=== PATIENT | male | born 1955 | race Caucasian/White ===

== ENCOUNTER 2019-08-10 15:33 | Outpatient (CLI) | payer BC, SELFPAY ==
--- NOTE | 2019-08-10 | XR_ITS ---
WS: [id number] CHEST 2 VIEWS HISTORY: DYSPNEA COMPARISON: 06/25/2017 Lungs: Clear with no abnormality. No pleural effusion or pneumothorax. Cardiac size: Normal. Mediastinum/Aorta: Normal mediastinum. Bones: Normal. XR/XR chest 2V* [id number] IMPRESSION: Normal chest.
== END 2019-08-10 15:34 | disposition home or self-care (01) ==
PROVIDERS: Family Provider Family Medicine; PCP Family Medicine; Visit Provider Family Medicine
DX: Z01.89 Encounter for other specified special examinations (principal)

== ENCOUNTER 2020-04-29 13:18 | Inpatient (IN) | payer BC, MEDICARE, SELFPAY ==
[2020-04-29] VITALS (7 sets, daily range): BP systolic 113–133; BP diastolic 60–80; PULSE 90–106; RESP 18–22; TEMP 36.7–38.1; O2SAT 85–96; BMI 25.4
--- NOTE | 2020-04-29 14:37 | XR_ITS ---
WS: [id number] PORTABLE CHEST HISTORY: dyspnea COMPARISON: 08/10/2019 Scattered bilateral interstitial thickening in the upper and lower lung bal. New since 08/10/2019. N o pleural effusion or pneumothorax. Cardiac size: Normal. Mediastinum/Aorta: Normal mediastinum. No osseous abnormality seen. XR/XR chest 1V portable [id number] IMPRESSION: Multilobar bilateral interstitial thickening. Suspect pneumonitis/viral pneumon ia.
--- NOTE | 2020-04-29 14:38 | CTR_ITS ---
PROCEDURE INFORMATION: Exam: CT Angiography Chest With Contrast Exam date and time: 04/29/2020 5:35 PM Age: 64 years old Clinical indication: Cough and fever; Patient HX: Covid+ fever cough low o2 sats; Additional info: Dyspnea and covid TECHNIQUE: Imaging protocol: Computed tomographic angiography of the chest with intravenous contrast. Sagittal and coronal reformatted images were created and reviewed. 3D rendering (Not supervised by radiologist): MIP and/or 3D reconstructed images were created by the technologist. Radiation optimization: All CT scans at this facility use at least one of these dose optimization techniques: automated exposure control; mA and/or kV adjustment per patient size (includes targeted exams where dose is matched to clinical indication); or iterative reconstruction. Contrast material: OMNI 350; Contrast volume: 61 ml; Contrast route: INTRAVENOUS (IV); COMPARISON: CR XR chest 1V portable [id number] 04/29/2020 2:48 PM RADIATION DOSE METRICS: Total DLP (mGy-cm): 563.18 FINDINGS: Pulmonary arteries: No filling defects in the pulmonary arteries to suggest pulmonary embolism. Aorta: No evidence for aortic aneurysm or aortic dissection. Lungs: Tracheobronchial structures are patent. Multiple areas of ground-glass opacification diffusely in both lungs, with areas of crazy paving . More focal alveolar airspace disease in the posterior right lower lobe, the left lower lobe, and the left upper lobe. Multiple noncalcified nodules in the right lung, the largest is in the right middle lobe and has an average measurement of 6 mm (series 3, image 34). Pleural space: Trace left pleural effusion. No pneumothorax. Heart: The heart is unremarkable. No cardiomegaly. No pericardial effusion. Mediastinal space: The esophagus is unremarkable. No mediastinal hematoma. No pneumomediastinum. Lymph nodes: No lymphadenopathy. Liver: The visualized liver is unremarkable. Gallbladder and bile ducts: The visualized gallbladder is unremarkable. No dilatation of the visualized bile ducts. Pancreas: The visualized pancreas is unremarkable. No pancreatic ductal dilatation. Spleen: The spleen is unremarkable. Adrenals: The right and left adrenal glands are unremarkable. Kidneys and ureters: The visualized right and left kidneys are unremarkable. Bones/joints: Multilevel degenerative changes of varying severity in the visualized spine. Soft tissues: No acute abnormality in the extrathoracic soft tissues. CT/CT angio chest PE protcl [id number] IMPRESSION: 1. Commonly reported imaging features of COVID-19 pneumonia are present. Other processes such as influenza pneumonia and organizing pneumonia, as can be seen with drug toxicity and connective tissue disease, can cause a similar imaging pattern. (Reference: Hardy) Recommend followup chest imaging in 4-6 weeks to insure resolution of these findings. 2. No evidence for pulmonary embolism. 3. Trace left pleural effusion. 4. Multiple noncalcified nodules in the right lung, the largest is in the right middle lobe and has an average measurement of 6 mm. For patients at low risk (minimal or absent history of smoking and of other known risk factors), recommend CT Chest at 3-6 months, then consider CT Chest at 18-24 months. For patients at high risk (history of smoking or of other known risk factors), recommend CT Chest at 3-6 months, then CT Chest at 18-24 months. (Reference: Shana) 5. Incidental/nonacute findings are listed in the report. REFERENCES: 1. Shana H, et al. Guidelines for Management of Incidental Pulmonary Nodules Detected on CT Images: From the Fleischner Society 2017. Radiology. 2017;284(1):228-243. 2. Hardy Vega, et al., Radiological Society of [place] Expert Consensus Statement on Reporting Chest CT Findings Related to COVID-19. Endorsed by the Society of Thoracic Radiology, the [place] [employer], and RSNA. Published September 02, 2019. Radiation Dose CTDIVOL = (mGy): DLP = 563.18 (mGy-cm)
--- NOTE | 2020-04-29 15:21 | ED_ITS ---
HPI - COVID General: Chief Complaint: COVID symptoms Stated Complaint: COVID+ (TESTED 1 WK AGO), WORSENING SYMPTOMS Time Seen by Provider: 04/29/20 15:15 Triage information: No fever, cough or shortness of breath . Exposure to COVID + person last 14 days History of Present Illness: HPI Narrative: 64 yo female presents emergency room with complaints of increasing shortness of breath over the last several days room air O2 sat is 85% on arrival in triage. Patient is known Covid positive you tested +1-week ago. He denies any diarrhea at this point did have some initially. He has had increasing cough and shortness of breath without any productive cough. He has had significant myalgias as well. He reports improvement with application of oxygen and maintaining sats in the low 90s on 4 L by nasal cannula. complaint: known COVID positive Prior testing date: 04/22/20 COVID 19 common symptoms: positive fever(s), chills, cough, non-productive cough, dyspnea, fatigue, body aches and nasal congestion; negative nausea, vomiting or diarrhea COVID 19 other sytmptoms: positive chest pain and requiring oxygen Onset (ago): day(s) (7) Severity: severe Pertinent comorbid conditions: hypertension Treatment prior to arrival: none COVID Results: No Data to Display Review of Systems Const: Reports: fever(s), chills, body aches and fatigue ENMT: Reports: nasal congestion Card: Reports: chest pain Resp: Reports: dyspnea and non-productive cough GI: Denies: abdominal pain, nausea, vomiting, hematemesis, coffee ground emesis, diarrhea, constipation, bloating, hematochezia or melena : Denies: flank pain, dysuria, urinary frequency or urinary urgency Skin/Breast: Denies: rash or pruritus PFS ED PFSH: Medical History (Updated 04/29/20 @ 17:37 by Trung Juárez DO) Gastric ulcer History of nephrolithiasis Surgical History History of colonoscopy Status post laparotomy For perforated duodenal ulcer Family History (Updated 04/29/20 @ 17:05 by Bala Jacob MD) Mother Cancer Melanoma Denies family history of Anesthesia complication Bleeding disorder Social History (Updated 04/29/20 @ 17:06 by Bala Jacob MD) Smoking and tobacco status: former smoker Alcohol intake: never Substance/Drug Use: never Physical Exam Const: COMMON NORMALS: no acute distress GENERAL APPEARANCE: cooperative and comfortable ORIENTATION/CONSCIOUSNESS: Yes awake, Yes oriented to person, Yes oriented to place and Yes oriented to time HENMT: COMMON NORMALS: normocephalic, atraumatic and hearing grossly normal bi laterally HEAD & SCALP: normocephalic and atraumatic Eye: COMMON NORMALS: Equal, round and reactive pupils present, EOMs intact bilaterally, conjunctivae normal and no scleral icterus CONJUNCTIVA: Yes conjunctivae normal PUPIL: Yes Equal, round and reactive pupils present Neck/C-Spine: COMMON NORMALS: no JVD Resp: AUSCULTATION: rales and wheezes Cardio: COMMON NORMALS: no JVD, regular rate, regular rhythm and No murmurs present (Cardio) RATE: regular rate RHYTHM: regular rhythm GI: COMMON NORMALS: Soft to palpation and No hepatosplenomegaly present AUSCULTATION: Yes normoactive bowel sounds PALPATION: Yes Soft to palpation, No Tenderness to palpation present (GI), No Guarding due to palpation present (GI) and Yes No hepatosplenomegaly present Extremity: COMMON NORMALS: normal to inspection, capillary refill normal, no clubbing, cyanosis or edema, no calf tenderness and no pedal edema Neuro: SENSORIUM/ORIENTATION: Yes oriented to person, Yes oriented to place and Yes oriented to time Skin: COMMON NORMALS: no rashes or lesions noted GENERAL SKIN EXAM: no rashes or lesions noted Course Vital Signs: Vital signs: Vital Signs Temperature 98.0 F 04/29/20 14:06 Pulse Rate 92 04/29/20 14:06 Respiratory Rate 22 H 04/29/20 14:06 Blood Pressure 133/60 04/29/20 14:06 Pulse Oximetry 92 04/29/20 14:15 MDM - COVID MDM Narrative: Medical decision making narrative: Patient with pneumonia secondary to Covid. We will go ahead and admit to the ICU. CTA of the chest is pending. Patient been given remdesivir and dexamethasone Dr. Jacob is seen the patient will admit to the VICU Lab Data: Labs: Lab Results 04/29/20 04/29/20 04/29/20 Range/Units 15:30 15:30 15:30 WBC 14.5 H (4.0-10.0) 10^3/ uL RBC 4.82 (4.1-5.3) 10^6/u L Hgb 14.9 (11.7-16.6) g/dL Hct 45.0 (42.0-52.0) % MCV 93.4 (80-94) fL MCH 30.9 (28.0-34.0) pg MCHC 33.1 (30.0-36.0) g/dL RDW 13.0 (12.1-15.1) % Plt Count 405 H (130-400) 10^3/c mm MPV 10.0 (7.4-10.4) fL Neut % (Auto) 87.7 % Lymph % (Auto) 6.7 % [place] % (Auto) 4.3 % Eos % (Auto) 0.2 % Baso % (Auto) 0.3 % Neut # (Auto) 12.73 H (1.8-7.7) 10^3/u L Lymph # (Auto) 1.0 (0.8-4.8) 10^3/u L [place] # (Auto) 0.6 (0.2-0.9) 10^3/u L Eos # (Auto) 0.0 (0.0-0.8) 10^3/u L Baso # (Auto) 0.1 (0.0-0.1) 10^3/u L Nucleated RBC % (a uto) 0 % Nucleated RBCs # 0.0 /100WBC Fibrinogen 1308 H (174-498) mg/dL D-Dimer 0.90 H (0-0.59) ug/mIFE U Specimen Type Sample Site ABG pH (7.35-7.45) ABG pCO2 (35-45) mmHg ABG pO2 (80.0-100.0) mmH g ABG HCO3 (22-26) mmol/L ABG Base Excess (-2.0-2.0) mmol/ L Luis Test Hematocrit (42-52) % O2 Delivery Device O2 Liters/Min % FiO2 % Spin Table Operator ID Sodium 135 L (136-145) mmol/L Potassium 3.9 (3.5-5.1) mmol/L Chloride 96 L (98-107) mmol/L Carbon Dioxide 24 (22-29) mmol/L Anion Gap 18.9 (5-19) BUN 25 H (8-23) mg/dL Creatinine 1.2 (0.7-1.2) mg/dL GFR Calculation 60.8 L (90-130) mL/min Glucose 113 (65-115) mg/dL Calculated Osmolal ity 285 (285-295) mOsm/k g Lactic Acid (0.5-2.2) mmol/L Calcium 9.5 (8.5-10.5) mg/dL Total Bilirubin 0.5 (0.15-1.2) mg/dL AST 29 (0-40) U/L ALT 32 (0-41) U/L Alkaline Phosphata se 154 H (40-130) IU/L Lactate Dehydrogen ase 330 H (135-225) U/L C-Reactive Protein 385.5 H (0.0-4.9) mg/L Total Protein 8.0 (6.6-8.7) g/dL Albumin 3.8 (3.5-5.2) g/dL Globulin 4.2 (1.3-4.6) g/dL Procalcitonin 1.10 H (0-0.5) ng/mL 04/29/20 04/29/20 Range/Units 15:30 15:42 WBC (4.0-10.0) 10^3/ uL RBC (4.1-5.3) 10^6/u L Hgb (11.7-16.6) g/dL Hct (42.0-52.0) % MCV (80-94) fL MCH (28.0-34.0) pg MCHC (30.0-36.0) g/dL RDW (12.1-15.1) % Plt Count (130-400) 10^3/c mm MPV (7.4-10.4) fL Neut % (Auto) % Lymph % (Auto) % [place] % (Auto) % Eos % (Auto) % Baso % (Auto) % Neut # (Auto) (1.8-7.7) 10^3/u L Lymph # (Auto) (0.8-4.8) 10^3/u L [place] # (Auto) (0.2-0.9) 10^3/u L Eos # (Auto) (0.0-0.8) 10^3/u L Baso # (Auto) (0.0-0.1) 10^3/u L Nucleated RBC % (a uto) % Nucleated RBCs # /100WBC Fibrinogen (174-498) mg/dL D-Dimer (0-0.59) ug/mIFE U Specimen Type Arterial Sample Site Radial, left ABG pH 7.42 (7.35-7.45) ABG pCO2 37.1 (35-45) mmHg ABG pO2 58.9 L (80.0-100.0) mmH g ABG HCO3 23.8 (22-26) mmol/L ABG Base Excess -0.4 (-2.0-2.0) mmol/ L Luis Test Pos Hematocrit 52.1 H (42-52) % O2 Delivery Device Nc O2 Liters/Min 4.5 % FiO2 38.0 % Spin Table Operator ID [id number] Sodium (136-145) mmol/L Potassium (3.5-5.1) mmol/L Chloride (98-107) mmol/L Carbon Dioxide (22-29) mmol/L Anion Gap (5-19) BUN (8-23) mg/dL Creatinine (0.7-1.2) mg/dL GFR Calculation (90-130) mL/min Glucose (65-115) mg/dL Calculated Osmolal ity (285-295) mOsm/k g Lactic Acid 1.5 (0.5-2.2) mmol/L Calcium (8.5-10.5) mg/dL Total Bilirubin (0.15-1.2) mg/dL AST (0-40) U/L ALT (0-41) U/L Alkaline Phosphata se (40-130) IU/L Lactate Dehydrogen ase (135-225) U/L C-Reactive Protein (0.0-4.9) mg/L Total Protein (6.6-8.7) g/dL Albumin (3.5-5.2) g/dL Globulin (1.3-4.6) g/dL Procalcitonin (0-0.5) ng/mL COVID Results: No Data to Display Discharge Plan Discharge Patient Disposition: Admitted As Inpatient Admit Provider: Bala Jacob Clinical Impression: Pneumonia due to COVID-19 virus, Acute respiratory failure with hypoxia Condition: Stable Coding Level of Care Code ED Harness Repairer for Chg Fwd Exam Comprehensive
[2020-04-29 15:44] LABS: Basophils # 0.1 10^3/uL (0.0-0.1); Basophils % 0.3 %; Eosinophils % 0.2 %; Hemoglobin 14.9 g/dL (11.7-16.6); Lymphocytes % 6.7 %; Mean Corpuscular HGB Conc 33.1 g/dL (30.0-36.0); Mean Corpuscular Hemoglobin 30.9 pg (28.0-34.0); Mean Corpuscular Volume 93.4 fL (80-94); Monocytes # 0.6 10^3/uL (0.2-0.9); Monocytes % 4.3 %; Neutrophils # 12.73 10^3/uL (1.8-7.7); Neutrophils % 87.7 %; Nucleated Red Blood Cells % 0 %; Platelet Count 405 10^3/cmm (130-400); Red Blood Count 4.82 10^6/uL (4.1-5.3); White Blood Count 14.5 10^3/uL (4.0-10.0)
[2020-04-29 15:55] LABS: ABG PCO2 37.1 mmHg (35-45); ABG PH Result 7.42 (7.35-7.45); Arterial Blood Gas Hematocrit 52.1 % (42-52); Base Excess ABG -0.4 mmol/L (-2.0-2.0); Blood Gas Allen Test Pos; Blood Gas LPM 4.5 %; Blood Gas Sample Site Radial, left; Blood Gas Sample Type Arterial; HCO3 ABG 23.8 mmol/L (22-26); Oxygen Device NC; PO2 ABG 58.9 mmHg (80.0-100.0)
[2020-04-29 16:08] LABS: Fibrinogen 1308 mg/dL (174-498)
[2020-04-29 16:26] LABS: Lactic Sepsis W/Reflex 1.5 mmol/L (0.5-2.2)
--- NOTE | 2020-04-29 17:01 | PM.HP ---
Providers/Chief Complaint Primary Care Provider: Curtis Cobb MD Chief Complaint: COVID+ (TESTED 1 WK AGO), WORSENING SYMPTOMS History of Present Illness Kennedy Navarro is a 64 year old male with no significant past medical history, who presents to [facility] due to complaints of shortness of breath, fevers, cough, trouble catching his breath. Patient has known positive, tested positive a week ago, he says that since then he has had low-grade fevers, cough, fatigue, malaise. He was able to deal with his symptoms, however he started to develop shortness of breath at rest, trouble catching his breath, cough associate with shortness of breath. No joint pains, no diarrhea, no abdominal pain, no changes in his taste sensation, no lightheadedness, dizziness. Denies a cardiovascular history. Denies history of COPD. Smoked briefly in his 20s. No history of strokes. Is fairly healthy Review of Systems Const: Reports: fever(s), chills and malaise; Denies: fatigue Eyes: Denies: change in vision or blurry vision ENMT: Reports: throat pain; Denies: nasal congestion Card: Denies: chest pain, palpitations or edema Resp: Reports: dyspnea and non-productive cough; Denies: productive cough or wheezing GI: Denies: abdominal pain, nausea, vomiting, hematemesis, diarrhea, constipation, hematochezia or melena : Denies: flank pain, difficulty urinating, dysuria or urinary frequency Musc: Denies: neck pain or back pain Skin/Breast: Denies: rash Neuro: Denies: headache(s), dizziness or vertigo Psych: Denies: anxiety or depression Endo: Denies: polyuria or polydipsia Medications/Allergies Home Medications Medication Instructions Recorded Confirmed Last Taken Type No Known Home Medications 04/29/20 04/29/20 Unknown History Allergies Allergy/AdvReac Type Severity Reaction Status Date / Time No Known Allergies Allergy Verified 11/06/19 09:30 PFSH Acute PFSH: Medical History (Updated 04/29/20 @ 17:06 by Bala Jacob MD) Gastric ulcer History of nephrolithiasis Surgical History History of colonoscopy Status post laparotomy For perforated duodenal ulcer Family History (Updated 04/29/20 @ 17:05 by Bala Jacob MD) Mother Cancer Melanoma Denies family history of Anesthesia complication Bleeding disorder Social History (Updated 04/29/20 @ 17:06 by Bala Jacob MD) Smoking and tobacco status: former smoker Alcohol intake: never Substance/Drug Use: never Vitals/I&O/Wt Last Vital Signs Temp 98.0 F 04/29/20 14:06 Pulse 92 04/29/20 14:06 Resp 22 H 04/29/20 14:06 BP 133/60 04/29/20 14:06 Pulse Ox 97 04/29/20 16:18 Weight last 48 hrs Weight 80.286 kg Physical Exam Const: COMMON NORMALS: no acute distress and patient oriented x3 GENERAL APPEARANCE: cooperative and comfortable HENMT: COMMON NORMALS: normocephalic HEAD & SCALP: normocephalic Eye: COMMON NORMALS: Equal, round and reactive pupils present and EOMs intact bilaterally GENERAL EYE: appearance normal, both eyes and all related structures PUPIL: Yes Equal, round and reactive pupils present Neck/C-Spine: COMMON NORMALS: full ROM, no lymphadenopathy, no JVD and Thyroid normal THYROID: Thyroid normal Lymph: LYMPHATIC: no lymphadenopathy noted Resp: COMMON NORMALS: normal respiratory effort, No retractions, No use of accessory muscles and clear to auscultation bilaterally AUSCULTATION: clear to auscultation bilaterally Cardio: COMMON NORMALS: no JVD, regular rate, regular rhythm, S1 normal heart sound present, S2 normal heart sound present, No gallops present (Cardio), No clicks present (Cardio) and No murmurs present (Cardio) RATE: regular rate RHYTHM: regular rhythm HEART SOUNDS: S1 normal heart sound present and S2 normal heart sound present GI: COMMON NORMALS: Normal to inspection, nondistended, normoactive bowel sounds present, Soft to palpation, non-tender and No hepatosplenomegaly present PALPATION: Yes Soft to palpation and Yes No hepatosplenomegaly present Extremity: COMMON NORMALS: normal to inspection, full ROM and no pedal edema Neuro: COMMON NORMALS: patient oriented x3, CN's II-XII intact bilaterally, moves all extremities and no focal motor deficits Psych: COMMON NORMALS: mental status grossly normal, Normal thought process present and cooperative THOUGHT PROCESS: Normal thought process present Data : 04/29/20 15:30 04/29/20 15:30 A&P Assessment and plan (1) Acute respiratory failure with hypoxia: Secondary to COVID-19 pneumonia, viral pneumonitis, secondary bacterial pneumonia Plan: -We will order CT angiogram of the chest to rule out pulmonary emboli -I confirmed multiple times with patient, he does not want to be put on a ventilator -He does not want chest compressions, does not want shocking of the heart, does not want medications per ACLS, but only wants it for short period of time -Admit to viral ICU -Vitamin C, zinc -Advair, albuterol -Decadron -Remdesivir -Azithromycin Rocephin -Sputum cultures, blood cultures urine cultures, urine bacterial antigens -Tessalon Perles, aggressive pulmonary toilet, flutter valve, incentive spirometer -Monitor respiratory status closely -Serial EKGs, serial troponins, telemetry monitoring, cardiac echo -For hypercoagulability prophylaxis, patient has a history of perforated gastric ulcer, will order low-dose Lovenox, however if CT angiogram does show a pulmonary emboli, will have to start on a heparin drip, monitor hemoglobin closely Status: Acute (2) Pneumonia due to COVID-19 virus: Status: Acute (3) Viral pneumonitis: Status: Acute (4) Secondary bacterial pneumonia: Status: Acute Attestations Medical Necessity Statement*: Patient requires hospitalization, inpatient, greater than 2 midnights, acute respiratory failure with hypoxia secondary to COVID-19, secondary bacterial pneumonia, viral pneumonitis Coding Level of Care Code Acute Perfume Maker for [facility] Diagnoses Acute respiratory failure with hypoxia J96.01 Pneumonia due to COVID-19 virus U07.1; J12.89 Viral pneumonitis J12.9 Secondary bacterial pneumonia J15.9
[2020-04-29 17:02] LABS: Alanine Aminotransferase 32 U/L (0-41); Albumin Level 3.8 g/dL (3.5-5.2); Alkaline Phosphatase 154 IU/L (40-130); Anion Gap 18.9 (5-19); Aspartate Amino Transferase 29 U/L (0-40); Blood Urea Nitrogen 25 mg/dL (8-23); Calcium 9.5 mg/dL (8.5-10.5); Carbon Dioxide 24 mmol/L (22-29); Chloride 96 mmol/L (98-107); Globulin 4.2 g/dL (1.3-4.6); Glomerular Filtration Rate 60.8 mL/min (90-130); Glucose 113 mg/dL (65-115); Lactate Dehydrogenase 330 U/L (135-225); Osmolality Calculated 285 mOsm/kg (285-295); Potassium 3.9 mmol/L (3.5-5.1); Sodium 135 mmol/L (136-145); Total Bilirubin 0.5 mg/dL (0.15-1.2)
[2020-04-29 17:14] LABS: C Reactive Protein 385.5 mg/L (0.0-4.9)
[2020-04-29] MEDS: iohexol 350 mg/mL 100 mL Btl IV (18:14)
--- NOTE | 2020-04-29 19:25 | PC.NURSE ---
patient report received from JANET ALMONTE and care transferred to SUZY Vazquez
--- NOTE | 2020-04-29 19:37 | PC.NURSE ---
Received report from ER, this nurse was informed that Flu Swab sample was just obtained
--- NOTE | 2020-04-29 19:38 | ECG_ITS ---
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 Measurements Intervals [place] Rate: 87 P: 33 [place]: 144 QRS: 30 QRSD: 110 T: 33 QT: 327 QTc: 395 Interpretive Statements SINUS RHYTHM No previous ECG available for comparison Electronically Signed On 04-29-2020 20:06:39 ASSORTER LAUNDRY by Nargis Lynne M.D. [id number]
[2020-04-29 20:30] LABS: Influenza A by IFA Negative (Negative)
[2020-04-29 20:31] LABS: Influenza B by IFA Negative (Negative)
[2020-04-29 21:06] LABS: Troponin(5th) Baseline 6 ng/L (0-15)
[2020-04-29] MEDS: dexamethasone 4 mg/mL INJ 6 MG IVP (22:20)
[2020-04-29] MEDS: cefTRIAXone 1,000 MG in sodium chloride 0.9% (plus) 50 ML 100 MG IV (22:21)
[2020-04-29] MEDS: azithromycin 500 MG in sodium chloride 0.9% 250 ML 250 MG IV (22:21)
[2020-04-29] MEDS: enoxaparin 40 mg/0.4 mL Syringe SUBCUT (22:21)
[2020-04-29] MEDS: pantoprazole 40 mg SDV IVP (22:22)
[2020-04-29] MEDS: ascorbic acid 500 mg Tablet 1000 MG PO (22:22)
--- NOTE | 2020-04-29 22:56 | ECG_ITS ---
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 Measurements Intervals [place] Rate: 102 P: 37 [place]: 162 QRS: 32 QRSD: 105 T: 35 QT: 317 QTc: 414 Interpretive Statements SINUS TACHYCARDIA Compared to ECG 04/29/2020 20:04:53 Sinus rhythm no longer present Electronically Signed On 05-11-2020 6:56:22 SPRAY WORKER by Nargis Lynne M.D. [id number]
--- NOTE | 2020-04-29 23:52 | PC.NURSE ---
Admit note Arrived from ED 2114 via WC, denied SOB, transferred to bed with standby assist, AO x4, answered questions appropriately, RT placed on 10L High Flow NC
[2020-04-30] VITALS (36 sets, daily range): BP systolic 91–142; BP diastolic 56–85; PULSE 67–102; RESP 16–40; TEMP 36.7–37.4; O2SAT 85–98
[2020-04-30 00:06] LABS: Troponin 5 2HR 8.51 ng/L (0-15); Troponin 5 2HR Delta 2.51 ABS# (0-10)
[2020-04-30 04:36] LABS: Basophils % 0.3 %; Hematocrit 40.4 % (42.0-52.0); Hemoglobin 13.5 g/dL (11.7-16.6); Lymphocytes # 0.6 10^3/uL (0.8-4.8); Lymphocytes % 6.8 %; Mean Corpuscular HGB Conc 33.4 g/dL (30.0-36.0); Mean Corpuscular Hemoglobin 30.8 pg (28.0-34.0); Mean Platelet Volume 11.2 fL (7.4-10.4); Monocytes # 0.1 10^3/uL (0.2-0.9); Monocytes % 1.1 %; Neutrophils # 8.01 10^3/uL (1.8-7.7); Neutrophils % 90.6 %; Nucleated Red Blood Cells % 0 %; Platelet Count 389 10^3/cmm (130-400); Red Blood Count 4.39 10^6/uL (4.1-5.3); Red Cell Distribution Width 13.1 % (12.1-15.1); White Blood Count 8.9 10^3/uL (4.0-10.0)
[2020-04-30 05:20] LABS: ABG PCO2 40.2 mmHg (35-45); ABG PH Result 7.42 (7.35-7.45); Arterial Blood Gas Hematocrit 42.2 % (42-52); Base Excess ABG 1.3 mmol/L (-2.0-2.0); Blood Gas Sample Type Arterial; HCO3 ABG 25.9 mmol/L (22-26); PO2 ABG 64.6 mmHg (80.0-100.0)
[2020-04-30 05:21] LABS: Blood Gas Operator Identificat HARKR; Blood Gas Sample Site Brachial, left; Oxygen Device NC
[2020-04-30 05:40] LABS: Slide Review Slide Review Perform
--- NOTE | 2020-04-30 06:00 | ECG_ITS ---
[facility] ED Test Date: 2020-04-30 Pat Name: Kennedy Navarro Department: Room: ICU19 Gender: Male Manager Finance: : 1955 Requested By: Bala Jacob Order Number: [id number] Lucia MD: Nargis Lynne M.D. Measurements Intervals [place] Rate: 85 P: 39 [place]: 171 QRS: 17 QRSD: 101 T: 39 QT: 346 QTc: 412 Interpretive Statements SINUS RHYTHM Compared to ECG 04/29/2020 23:04:35 Sinus tachycardia no longer present Electronically Signed On 05-11-2020 6:56:09 PLANT TECHNICAL SPECIALIST by Nargis Lynne M.D. [id number]
--- NOTE | 2020-04-30 07:00 | XRR_ITS ---
PROCEDURE INFORMATION: Exam: XR Chest, 1 View Exam date and time: 04/30/2020 4:24 AM Age: 64 years old Clinical indication: Condition or disease; Lung condition and disease; Other: Covid; Additional info: SOB TECHNIQUE: Imaging protocol: XR of the chest Views: 1 view. COMPARISON: CR XR chest 1V portable [id number] 04/29/2020 2:48 PM FINDINGS: The thorax is partially obscured by overlying EKG leads. Lungs: Interstitial prominence without acute infiltrate. Pleural space: Incomplete visualization of the left costophrenic angle. No right pleural effusion. Heart/Mediastinum: No cardiomegaly. Bones/joints: Degenerative change. XR/XR chest 1V portable [id number] IMPRESSION: Interstitial prominence without acute infiltrate.
--- NOTE | 2020-04-30 07:04 | PC.NURSE ---
called and informed this nurse she left pt phone golf sales manager in ED, this nurse called ED and was informed they would look for it
[2020-04-30 08:17] LABS: D Dimer 1.03 ug/mIFEU (0-0.59)
[2020-04-30 08:36] LABS: INR 1.11 (0.8-1.2)
[2020-04-30] MEDS: albuterol 8 gm MDI 2 PUFF INHALATION ×2 (08:51→20:45)
[2020-04-30] MEDS: enoxaparin 100 mg/mL Syringe 65 MG SUBCUT (09:31)
[2020-04-30] MEDS: sucralfate 1 gm Tablet PO ×2 (09:31→16:26)
[2020-04-30] MEDS: ascorbic acid 500 mg Tablet 1000 MG PO ×2 (09:32→17:13)
[2020-04-30] MEDS: zinc gluconate 50 mg Tablet PO (09:32)
[2020-04-30] MEDS: pantoprazole 40 mg SDV IVP ×2 (09:32→20:24)
--- NOTE | 2020-04-30 09:40 | PC.NURSE ---
Aylin Navarro called to check on her . Spoke with her at length about his condition, medications and mood.
[2020-04-30] MEDS: acetaminophen-codeine 120-12 mg/5 mL UDC PO (10:15)
[2020-04-30 11:51] LABS: Alanine Aminotransferase 24 U/L (0-41); Albumin Level 3.2 g/dL (3.5-5.2); Alkaline Phosphatase 130 IU/L (40-130); Anion Gap 16.8 (5-19); Aspartate Amino Transferase 23 U/L (0-40); Blood Urea Nitrogen 22 mg/dL (8-23); C Reactive Protein 297.9 mg/L (0.0-4.9); Calcium 9.4 mg/dL (8.5-10.5); Carbon Dioxide 24 mmol/L (22-29); Chloride 101 mmol/L (98-107); Globulin 3.8 g/dL (1.3-4.6); Glucose 189 mg/dL (65-115); Magnesium 2.3 mg/dL (1.7-2.3); Osmolality Calculated 294 mOsm/kg (285-295); Phosphorus 3.2 mg/dL (2.5-4.5); Potassium 3.8 mmol/L (3.5-5.1); Sodium 138 mmol/L (136-145); Total Bilirubin 0.3 mg/dL (0.15-1.2)
[2020-04-30 11:53] LABS: Troponin T (5th) Once 6 ng/L (0-15)
[2020-04-30 11:58] LABS: NT Pro B Type Natriuretic Pept 57 pg/mL (0-125); Procalcitonin 0.73 ng/mL (0-0.5)
[2020-04-30 12:08] LABS: Creatine Phosphokinase 30 U/L (39-308)
--- NOTE | 2020-04-30 14:10 | P.PN_ITS ---
Subjective Subjective: Interval history: This morning patient was examined, still having a persistent cough, is up to 10 L, some shortness of breath, but stating that he is doing much better, no fevers overnight, he tells me that he wants me to discuss his case with Trung villarreal, who is a family friend, he tells me that his and family have difficulty understanding medical terminology, so he would prefer for me to speak to Trung Vitals/I&O/Wt Last Vital Signs Temp 99.4 F 04/30/20 02:20 Pulse 75 04/30/20 11:28 Resp 17 04/30/20 11:28 BP 112/68 04/30/20 06:08 Pulse Ox 90 04/30/20 11:28 04/29/20 04/30/20 04/30/20 22:59 06:59 14:59 Intake Total 490 / 490 Output Total 650 / 650 Balance -160 / -160 Weight last 48 hrs Weight 80.286 kg Physical Exam Const: COMMON NORMALS: no acute distress and patient oriented x3 HENMT: COMMON NORMALS: normocephalic HEAD & SCALP: normocephalic Neck/C-Spine: COMMON NORMALS: no JVD Resp: COMMON NORMALS: normal respiratory effort, No retractions, No use of accessory muscles and clear to auscultation bilaterally AUSCULTATION: clear to auscultation bilaterally Cardio: COMMON NORMALS: no JVD, regular rate, regular rhythm, S1 normal heart sound present and S2 normal heart sound present RATE: regular rate RHYTHM: regular rhythm HEART SOUNDS: S1 normal heart sound present and S2 normal heart sound present GI: COMMON NORMALS: Normal to inspection, nondistended, normoactive bowel sounds present, Soft to palpation, non-tender, No hepatosplenomegaly present, no masses and no bruits PALPATION: Yes Soft to palpation and Yes No hepatosplen omegaly present Extremity: COMMON NORMALS: capillary refill normal, no clubbing, cyanosis or edema, no calf tenderness and no pedal edema Neuro: COMMON NORMALS: patient oriented x3 Psych: COMMON NORMALS: mental status grossly normal Data : 04/30/20 03:30 04/30/20 10:50 A&P Assessment and plan (1) Acute respiratory failure with hypoxia: Secondary to COVID-19 pneumonia, viral pneumonitis, secondary bacterial pneumonia -CT angiogram of the chest: 1. Commonly reported imaging features of COVID-19 pneumonia are present. Other processes such as influenza pneumonia and organizing pneumonia, as can be seen with drug toxicity and connective tissue disease, can cause a similar imaging pattern. (Reference: Hardy) Recommend followup chest imaging in 4-6 weeks to insure resolution of these findings. 2. No evidence for pulmonary embolism. 3. Trace left pleural effusion. 4. Multiple noncalcified nodules in the right lung, the largest is in the right middle lobe and has an average measurement of 6 mm. For patients at low risk (minimal or absent history of smoking and of other known risk factors), recommend CT Chest at 3-6 months, then consider CT Chest at 18-24 months. For patients at high risk (history of smoking or of other known risk factors), recommend CT Chest at 3-6 months, then CT Chest at 18-24 months. (Reference: Shana) -I confirmed multiple times with patient, he does not want to be put on a ventilator -He does not want chest compressions, does not want shocking of the heart, does not want medications per ACLS, but only wants it for short period of time -Admit to viral ICU -Vitamin C, zinc -Advair, albuterol -Decadron -Remdesivir -Azithromycin Rocephin -Sputum cultures, blood cultures urine cultures, urine bacterial antigens -Tessalon Perles, aggressive pulmonary toilet, flutter valve, incentive spirometer -Monitor respiratory status closely -Serial EKGs, serial troponins, telemetry monitoring, cardiac echo -For hypercoagulability prophylaxis, given his increased oxygen requirements up to 10 L, I want to put him on therapeutic Lovenox for microthrombi associate with COVID-19, he does have significant risk of bleeding, given his history of perforated duodenal ulcer in 1999, however after weighing the risks and be nefits, I think that his risk of hypercoagulability currently significantly higher, discussed the risk and benefits, voiced recently, all questions answered, agreed to proceed with full dose hypercoagulability prophylaxis Status: Acute (2) Pneumonia due to COVID-19 virus: Status: Acute (3) Viral pneumonitis: Status: Acute (4) Secondary bacterial pneumonia: Status: Acute Attestations Medical Necessity Statement*: Patient requires hospitalization for acute respiratory failure secondary to COVID-19, secondary bacterial pneumonia Coding Level of Care Code Acute Latin Professor for [facility] Fwd Diagnoses Acute respiratory failure with hypoxia J96.01 Pneumonia due to COVID-19 virus U07.1; J12.89 Viral pneumonitis J12.9 Secondary bacterial pneumonia J15.9
[2020-04-30] MEDS: guaiFENesin 600 mg Tablet PO (17:13)
--- NOTE | 2020-04-30 19:38 | USCV_ITS ---
Kennedy Navarro Age: 64 Gender: M : 1955 Exam Date: 04/30/2020 10:30 Ordering Phys: Bala Jacob MD Technologist: Michelle Oliver Exam Location: [facility] [place]ication: SOB BP: 112 / 68 HR: 74 Rhythm: Sinus Technical Quality: Technically difficult study MEASUREMENTS (Male / Female) Normal Values 2D ECHO LV Diastolic Diameter PLAX 3.4 cm 4.2 - 5.9 / 3.9 - 5.3 cm LV Systolic Diameter PLAX 1.7 cm LV Chamber Size 3.7 cm IVS Diastolic Thickness 1.1 cm 0.6 - 1.0 / 0.6 - 0.9 cm IVS Systolic Thickness 1.7 cm LVPW Diastolic Thickness 1.1 cm 0.6 - 1.0 / 0.6 - 0.9 cm LVPW Systolic Thickness 1.4 cm RV Chamber Size 2.6 cm LVOT Diameter 1.9 cm LV Ejection Fraction 2D Teich 83.4 % LA Diameter 2.5 cm LA Width 2.1 cm LA Height 4.0 cm RA Width 2.6 cm RA Height 3.0 cm Aorta at Sinotubular Diameter 3.4 cm DOPPLER AV Peak Velocity 97.0 cm/s LVOT Peak Velocity 83.0 cm/s AV Area Cont Eq vti 2.4 cm squared AV Area Cont Eq pk 2.4 cm squared MV Area PHT 3.5 cm squared Mitral E to A Ratio 0.9 MV E' Velocity 26.5 cm/s Mitral E to MV E' Ratio 5.2 Mitral E to LV E' Lateral Ratio 5.2 Mitral E to LV E' Septal Ratio 5.3 TV Peak E Velocity 49.0 cm/s FINDINGS Left Ventricle Normal left ventricular size, systolic function and wall thickness, with no regional wall motion abnormalities. LVEF is 55 to 60%. Normal left ventricular wall thickness. Normal diastolic filling pattern. Right Ventricle The right ventricle is normal in size and function. Right Atrium The right atrium is normal in size. Left Atrium The left atrium is normal in size. Mitral Valve Structurally normal mitral valve without significant stenosis or prolapse. There is no mitral regurgitation. Aortic Valve Not well-visualized. No significant aortic stenosis is noted. There is no aortic regurgitation. Tricuspid Valve Structurally normal tricuspid valve without significant stenosis or regurgitation. Insufficient TR jet to calculate RVSP. Pulmonic Valve Structurally normal pulmonic valve without significant stenosis. There is no pulmonic regurgitation. Pericardium Normal pericardium without effusion. Aorta Normal ascending aorta dimension. CONCLUSIONS LV systolic function is normal with EF of 55 to 60%. Diastolic function is normal. Significant valvular heart disease is noted. No prior comparison studies are available. Jorge Alegria MD (Electronically Signed) Final Date: 01 May 2020 11:46 S
[2020-04-30] MEDS: cefTRIAXone 1,000 MG in sodium chloride 0.9% (plus) 50 ML 100 MG IV (20:24)
[2020-04-30] MEDS: dexamethasone 4 mg/mL INJ 6 MG IVP (20:25)
[2020-04-30] MEDS: enoxaparin 100 mg/mL Syringe 80 MG SUBCUT (23:24)
[2020-04-30] MEDS: azithromycin 500 MG in sodium chloride 0.9% 250 ML 250 MG IV (23:24)
[2020-05-01] VITALS (28 sets, daily range): BP systolic 92–133; BP diastolic 60–79; PULSE 58–86; RESP 17–32; O2SAT 84–98
[2020-05-01 03:59] LABS: ABG PH Result 7.45 (7.35-7.45); Arterial Blood Gas Hematocrit 41.9 % (42-52); Blood Gas Sample Site Brachial, left; Blood Gas Sample Type Arterial; HCO3 ABG 27.1 mmol/L (22-26); Oxygen Device NC; PO2 ABG 65.4 mmHg (80.0-100.0)
[2020-05-01 04:58] LABS: Basophils % 0.2 %; Hematocrit 40.3 % (42.0-52.0); Hemoglobin 13.2 g/dL (11.7-16.6); Lymphocytes % 8.2 %; Mean Corpuscular HGB Conc 32.8 g/dL (30.0-36.0); Mean Corpuscular Hemoglobin 30.8 pg (28.0-34.0); Mean Corpuscular Volume 93.9 fL (80-94); Mean Platelet Volume 9.9 fL (7.4-10.4); Monocytes # 0.5 10^3/uL (0.2-0.9); Neutrophils # 10.65 10^3/uL (1.8-7.7); Neutrophils % 85.3 %; Nucleated Red Blood Cells % 0 %; Platelet Count 459 10^3/cmm (130-400); Red Blood Count 4.29 10^6/uL (4.1-5.3); Red Cell Distribution Width 13.2 % (12.1-15.1); White Blood Count 12.5 10^3/uL (4.0-10.0)
[2020-05-01 05:05] LABS: INR 1.14 (0.8-1.2)
[2020-05-01 05:08] LABS: D Dimer 0.49 ug/mIFEU (0-0.59)
[2020-05-01 05:10] LABS: Alanine Aminotransferase 26 U/L (0-41); Alkaline Phosphatase 106 IU/L (40-130); Anion Gap 14.1 (5-19); Aspartate Amino Transferase 23 U/L (0-40); Blood Urea Nitrogen 28 mg/dL (8-23); Calcium 8.9 mg/dL (8.5-10.5); Carbon Dioxide 25 mmol/L (22-29); Chloride 103 mmol/L (98-107); Globulin 3.3 g/dL (1.3-4.6); Glucose 166 mg/dL (65-115); Osmolality Calculated 295 mOsm/kg (285-295); Potassium 4.1 mmol/L (3.5-5.1); Sodium 138 mmol/L (136-145); Total Bilirubin 0.2 mg/dL (0.15-1.2); Total Protein 6.3 g/dL (6.6-8.7)
[2020-05-01 05:11] LABS: C Reactive Protein 141.1 mg/L (0.0-4.9); Magnesium 2.4 mg/dL (1.7-2.3); Phosphorus 2.7 mg/dL (2.5-4.5)
[2020-05-01 05:21] LABS: NT Pro B Type Natriuretic Pept 45 pg/mL (0-125); Procalcitonin 0.53 ng/mL (0-0.5)
[2020-05-01 05:33] LABS: Creatine Phosphokinase 31 U/L (39-308)
--- NOTE | 2020-05-01 06:00 | ECG_ITS ---
[facility] ED Test Date: 2020-05-01 Pat Name: Kennedy Navarro Department: Room: ICU19 Gender: Male Door Maker: DAFNE GONCALVESB: 1955 Requested By: Bala Jacob Order Number: [id number] Lucia MD: Nargis Lynne M.D. Measurements Intervals [place] Rate: 73 P: 52 MS: 162 QRS: 16 QRSD: 103 T: 41 QT: 390 QTc: 431 Interpretive Statements SINUS RHYTHM Compared to ECG 04/30/2020 09:03:13 No significant changes Electronically Signed On 05-11-2020 6:55:24 SOLAR PV INSTALLER by Nargis Lynne M.D. [id number]
[2020-05-01] MEDS: sucralfate 1 gm Tablet PO ×2 (06:41→17:46)
--- NOTE | 2020-05-01 07:00 | XRR_ITS ---
PROCEDURE INFORMATION: Exam: XR Chest, 1 View Exam date and time: 05/01/2020 6:43 AM Age: 64 years old Clinical indication: Shortness of breath; Additional info: SOB TECHNIQUE: Imaging protocol: XR of the chest Views: 1 view. COMPARISON: CR (CHEST, ) 04/30/2020 4:44 AM FINDINGS: Lungs: There are scattered hazy interstitial pulmonary infiltrates with linear atelectasis in the lung bases. The interstitial prominence may be due to a mild interstitial pneumonia possibly viral in nature. The linear atelectasis has become more prominent. Pleural space: Unremarkable. No pleural effusion. No pneumothorax. Heart/Mediastinum: Unremarkable. No cardiomegaly. Bones/joints: Unremarkable. XR/XR chest 1V portable [id number] IMPRESSION: 1. Stable mild hazy interstitial infiltrates consistent with a viral pneumonia. 2. There is increasing mild linear atelectasis in the lung bases.
[2020-05-01] MEDS: guaiFENesin 600 mg Tablet PO ×2 (08:17→17:46)
[2020-05-01] MEDS: ascorbic acid 500 mg Tablet 1000 MG PO ×2 (08:17→17:46)
[2020-05-01] MEDS: zinc gluconate 50 mg Tablet PO (08:17)
[2020-05-01] MEDS: pantoprazole 40 mg SDV IVP ×2 (08:18→21:00)
[2020-05-01] MEDS: albuterol 8 gm MDI 2 PUFF INHALATION ×2 (08:55→19:52)
[2020-05-01] MEDS: enoxaparin 100 mg/mL Syringe 80 MG SUBCUT ×2 (09:43→21:36)
--- NOTE | 2020-05-01 13:17 | P.PN_ITS ---
Vitals/I&O/Wt Last Vital Signs Temp 98.1 F 04/30/20 04:00 Pulse 73 05/01/20 08:54 Resp 17 05/01/20 08:48 BP 133/76 05/01/20 06:00 Pulse Ox 91 05/01/20 08:48 04/30/20 05/01/20 05/01/20 22:59 06:59 14:59 Intake Total 340 / 830 200 / 1030 950 / 950 Output Total 650 / 1300 200 / 1500 450 / 450 Balance -310 / -470 0 / -470 500 / 500 Weight last 48 hrs Weight 80.286 kg Physical Exam Const: COMMON NORMALS: no acute distress and patient oriented x3 HENMT: COMMON NORMALS: normocephalic HEAD & SCALP: normocephalic Neck/C-Spine: COMMON NORMALS: no JVD Resp: COMMON NORMALS: normal respiratory effort, No retractions and No use of accessory muscles AUSCULTATION: diminished lung sounds Cardio: COMMON NORMALS: no JVD, regular rate, regular rhythm, S1 normal heart sound present and S2 normal heart sound present RATE: regular rate RHYTHM: regular rhythm HEART SOUNDS: S1 normal heart sound present and S2 normal heart sound present GI: COMMON NORMALS: Normal to inspection, nondistended, normoactive bowel sounds present, Soft to palpation, non-tender, No hepatosplenomegaly present, no masses and no bruits PALPATION: Yes Soft to palpation and Yes No hepatosplenomegaly present Extremity: COMMON NORMALS: capillary refill normal, no clubbing, cyanosis or edema, no calf tenderness and no pedal edema Neuro: COMMON NORMALS: patient oriented x3 Psych: COMMON NORMALS: mental status grossly normal Data : 05/01/20 04:30 05/01/20 04:30 Micro: Microbiology 05/01/20 08:37 Blood Culture - Preliminary Blood SPECIMEN COLLECTED A&P Assessment and plan (1) Acute respiratory failure with hypoxia: Secondary to COVID-19 pneumonia, viral pneumonitis, secondary bacterial pneumonia -CT angiogram of the chest: 1. Commonly reported imaging features of COVID-19 pneumonia are present. Other processes such as influenza pneumonia and organizing pneumonia, as can be seen with drug toxicity and connective tissue disease, can cause a similar imaging pattern. (Reference: Hardy) Recommend followup chest imaging in 4-6 weeks to insure resolution of these findings. 2. No evidence for pulmonary embolism. 3. Trace left pleural effusion. 4. Multiple noncalcified nodules in the right lung, the largest is in the right middle lobe and has an average measurement of 6 mm. For patients at low risk (minimal or absent history of smoking and of other known risk factors), recommend CT Chest at 3-6 months, then consider CT Chest at 18-24 months. For patients at high risk (history of smoking or of other known risk factors), recommend CT Chest at 3-6 months, then CT Chest at 18-24 months. (Reference: Shana) -I confirmed multiple times with patient, he does not want to be put on a ventilator -He does not want chest compressions, does not want shocking of the heart, does not want medications per ACLS, but only wants it for short period of time -Currently patient is on 8 L,urine output 1500 -Admit to viral ICU -Vitamin C, zinc -Advair, albuterol -Decadron -Remdesivir -Azithromycin, Rocephin -Sputum cultures, blood cultures urine cultures, urine bacterial antigens -Tessalon Perles, aggressive pulmonary toilet, flutter valve, incentive spirometer -Monitor respiratory status closely -Serial EKGs, serial troponins, telemetry monitoring, cardiac echo -For hypercoagulability prophylaxis, given his increased oxygen requirements up to 10 L, I want to put him on therapeutic Lovenox for microthrombi associate with COVID-19, he does have significant risk of bleeding, given his history of perforated duodenal ulcer in 1999, however after weighing the risks and benefits, I think that his risk of hypercoagulability currently significantly higher, discussed the risk and benefits, voiced recently, all questions answered, agreed to proceed with full dose hypercoagulability prophylaxis plan continue pulmonary toilet, get up out of bed, try to wean oxygen, I updated Jun Andrade about patient's clinical status, patient would like us to contact him, and current will relay information to Kennedy Status: Acute (2) Pneumonia due to COVID-19 virus: Status: Acute (3) Viral pneumonitis: Status: Acute (4) Secondary bacterial pneumonia: Status: Acute Attestations Medical Necessity Statement*: Patient requires hospitalization for acute respiratory failure with hypoxia secondary to COVID-19, secondary bacterial infection Coding Level of Care Code Acute Plumber Gasfitter for [facility] Fwd Diagnoses Acute respiratory failure with hypoxia J96.01 Pneumonia due to COVID-19 virus U07.1; J12.89 Viral pneumonitis J12.9 Secondary bacterial pneumonia J15.9
[2020-05-01] MEDS: cefTRIAXone 1,000 MG in sodium chloride 0.9% (plus) 50 ML 100 MG IV (20:35)
[2020-05-01] MEDS: dexamethasone 4 mg/mL INJ 6 MG IVP (21:00)
--- NOTE | 2020-05-01 21:01 | PC.NURSE ---
ASSUMED CARE OF PT. PT RESTING IN BED. RN GAVE DECADRON IVP AND PROTONIX IVP. PT DENIES PAIN. WILL CONTINUE TO MONITOR.
[2020-05-01] MEDS: azithromycin 500 MG in sodium chloride 0.9% 250 ML 250 MG IV (21:36)
[2020-05-02] VITALS (29 sets, daily range): BP systolic 98–134; BP diastolic 51–83; PULSE 62–92; RESP 16–33; TEMP 36.6–36.8; O2SAT 73–96
[2020-05-02 03:58] LABS: ABG PCO2 39.3 mmHg (35-45); ABG PH Result 7.43 (7.35-7.45); Base Excess ABG 1.9 mmol/L (-2.0-2.0); Blood Gas Allen Test Pos; Blood Gas Sample Site Brachial, left; Blood Gas Sample Type Arterial; HCO3 ABG 26.2 mmol/L (22-26); Oxygen Device NC; PO2 ABG 73.9 mmHg (80.0-100.0)
[2020-05-02 05:55] LABS: Basophils % 0.2 %; Hematocrit 41.9 % (42.0-52.0); Hemoglobin 13.5 g/dL (11.7-16.6); Lymphocytes # 0.8 10^3/uL (0.8-4.8); Lymphocytes % 5.6 %; Mean Corpuscular HGB Conc 32.2 g/dL (30.0-36.0); Mean Corpuscular Hemoglobin 30.7 pg (28.0-34.0); Mean Corpuscular Volume 95.2 fL (80-94); Mean Platelet Volume 10.4 fL (7.4-10.4); Monocytes # 0.5 10^3/uL (0.2-0.9); Monocytes % 3.6 %; Neutrophils # 13.03 10^3/uL (1.8-7.7); Neutrophils % 86.7 %; Nucleated Red Blood Cells % 0 %; Platelet Count 564 10^3/cmm (130-400); Red Cell Distribution Width 13.4 % (12.1-15.1)
--- NOTE | 2020-05-02 05:58 | PC.NURSE ---
PT HAD AN UNEVENTFUL NIGHT. PT DENIES PAIN. WILL GIVE REPORT TO ONCOMING NURSE.
--- NOTE | 2020-05-02 06:00 | ECG_ITS ---
[facility] ED Test Date: 2020-05-02 Pat Name: Kennedy Navarro Department: Room: ICU19 Gender: Male Veterans Rehabilitation Counselor: : 1955 Requested By: Bala Jacob Order Number: [id number] Lucia MD: Nargis Lynne M.D. Measurements Intervals [place] Rate: 70 P: 47 RI: 161 QRS: 27 QRSD: 103 T: 48 QT: 392 QTc: 425 Interpretive Statements SINUS RHYTHM Compared to ECG 05/01/2020 05:25:50 No significant changes Electronically Signed On 05-11-2020 6:55:06 BROKE HANDLER by Nargis Lynne M.D. [id number]
[2020-05-02] MEDS: sucralfate 1 gm Tablet PO ×2 (06:16→17:41)
[2020-05-02 06:38] LABS: INR 1.14 (0.8-1.2)
[2020-05-02 06:40] LABS: Alanine Aminotransferase 33 U/L (0-41); Albumin Level 3.4 g/dL (3.5-5.2); Alkaline Phosphatase 109 IU/L (40-130); Anion Gap 16.3 (5-19); Aspartate Amino Transferase 28 U/L (0-40); Blood Urea Nitrogen 27 mg/dL (8-23); Calcium 9.2 mg/dL (8.5-10.5); Carbon Dioxide 25 mmol/L (22-29); Chloride 104 mmol/L (98-107); Globulin 3.3 g/dL (1.3-4.6); Glomerular Filtration Rate 113.2 mL/min (90-130); Glucose 152 mg/dL (65-115); Osmolality Calculated 300 mOsm/kg (285-295); Potassium 4.3 mmol/L (3.5-5.1); Sodium 141 mmol/L (136-145); Total Bilirubin 0.2 mg/dL (0.15-1.2); Total Protein 6.7 g/dL (6.6-8.7)
[2020-05-02 06:45] LABS: C Reactive Protein 73.1 mg/L (0.0-4.9); Magnesium 2.3 mg/dL (1.7-2.3); Phosphorus 3.3 mg/dL (2.5-4.5)
[2020-05-02 06:47] LABS: NT Pro B Type Natriuretic Pept 115 pg/mL (0-125)
[2020-05-02 06:56] LABS: D Dimer 0.35 ug/mIFEU (0-0.59)
[2020-05-02 06:58] LABS: Creatine Phosphokinase 33 U/L (39-308)
[2020-05-02] MEDS: zinc gluconate 50 mg Tablet PO (08:07)
[2020-05-02] MEDS: ascorbic acid 500 mg Tablet 1000 MG PO ×2 (08:07→17:39)
[2020-05-02] MEDS: guaiFENesin 600 mg Tablet PO ×2 (08:07→17:39)
[2020-05-02] MEDS: pantoprazole 40 mg SDV IVP ×2 (08:07→20:23)
--- NOTE | 2020-05-02 08:25 | PC.SOCIAL ---
IMM Page 2 of IMM explained to patient's spouse by phone. Initialed, dated, and timed and will be sent to Medical Records upon d/c.
[2020-05-02] MEDS: albuterol 8 gm MDI 2 PUFF INHALATION ×2 (08:51→19:53)
--- NOTE | 2020-05-02 09:13 | PC.NURSE ---
when administering PO medications the Zinc tablet hit the floor and was discarded. this is why there was a second tablet removed from the pyxis. it was administered to the patient.
[2020-05-02] MEDS: enoxaparin 100 mg/mL Syringe 80 MG SUBCUT ×2 (09:34→20:22)
--- NOTE | 2020-05-02 14:43 | DCPLANNER ---
Attempted to call pt cell number with no answer. Called pt's , Aylin and provided IMM rights on 05/02/2020 @ 5044.
--- NOTE | 2020-05-02 15:20 | PM.PN ---
Subjective Subjective: Interval history: Hospital course, labs and vitals noted. On examination patient is eating comfortably in bed. Saturating more than 92% on 4 L high flow nasal cannula. Denies any nausea, vomiting, headache. Patient has remained afebrile and hemodynamically stable. Working well with incentive spirometry and flutter valve. Vitals/I&O/Wt Last Vital Signs Temp 98.2 F 05/02/20 12:52 Pulse 73 05/02/20 10:54 Resp 18 05/02/20 10:54 BP 98/77 05/02/20 09:00 Pulse Ox 92 05/02/20 10:54 05/02/20 05/02/20 05/02/20 06:59 14:59 22:59 Intake Total 120 / 1590 470 / 470 Output Total 400 / 1250 450 / 450 Balance -280 / 340 Data : 05/02/20 03:45 05/02/20 03:45 Micro: Microbiology 05/02/20 10:20 Legionella Urinary Antigen - Final Unknown Source 05/02/20 10:20 Bacterial Antigens - Final Urine,Voided 05/01/20 08:37 Blood Culture - Preliminary Blood NEGATIVE TO DATE 05/01/20 21:55 Blood Culture - Preliminary Blood SPECIMEN COLLECTED A&P Assessment and plan (1) Acute respiratory failure with hypoxia: Status: Acute (2) Pneumonia due to COVID-19 virus: Status: Acute (3) Secondary bacterial pneumonia: Status: Acute Additional A&P Information Acute hypoxic respiratory failure secondary to COVID-19 pneumonia: ABG from today morning appreciated. Continue to wean oxygen supplementation keeping saturation over 90%. Continue with remdesivir to finish a 5-day course. Decadron 6 mg IV daily. Advair, Spiriva. Vitamin C, zinc. Aggressive pulmonary toilet with flutter valve incentive spirometry. Full dose Lovenox 1 mg/kg body weight every 12 hourly for now. We will transition to oral Eliquis tomorrow. Most likely patient will require a 14-day course post discharge. Echocardiogram done earlier in the admission shows an EF of 55 to 60% without any valvular abnormality or diastolic dysfunction. Continue to monitor inflammatory markers including CRP, fibrinogen and LDH. Out of bed to chair, ambulation. Procalcitonin trending down to normal. Patient still has some leukocytosis most likely secondary to steroids. Patient has remained afebrile last 24 hours. For now continue with azithromycin and ceftriaxone. We will continue to monitor. Check MRSA swab. As patient is on high-dose steroids we will continue to monitor blood sugars daily. If needed we will start patient on nystatin swish and swallow Keep blood pressures less than 140/90 mmHg with mean arterial pressure over 65. Limited resuscitation.-He does not want chest compressions, does not want shocking of the heart, does want medications per ACLS, but only wants it for short period of time Regular diet. Full dose Lovenox will also help with DVT prophylaxis. Attestations Medical Necessity Statement*: Patient requires further hospitalization for management of hypoxia due to COVID-19 pneumonia. Time Spent in Patient Care: Greater than 35 minutes (>than 50% of time spent in counselling and/or direct pt care on unit). Coding Level of Care Code Acute Director Of Partner Marketing for Valentino Reece Diagnoses Acute respiratory failure with hypoxia J96.01 Pneumonia due to COVID-19 virus U07.1; J12.89 Secondary bacterial pneumonia J15.9
[2020-05-02] MEDS: benzonatate 100 mg Capsule PO ×2 (16:03→20:23)
[2020-05-02 18:07] LABS: Thyroid Stimulating Hormone 0.28 uIU/mL (0.27-4.20)
[2020-05-02 18:21] LABS: Iron 55 ug/dL (59-158); Percent Saturation 33.9 % (20-50); Total Iron Binding Capacity 162 mcg/dl; Unsaturated Iron Binding 107 ug/dL (112-347)
[2020-05-02] MEDS: cefTRIAXone 1,000 MG in sodium chloride 0.9% (plus) 50 ML 100 MG IV (20:00)
[2020-05-02] MEDS: dexamethasone 4 mg/mL INJ 6 MG IVP (20:22)
[2020-05-02] MEDS: azithromycin 500 MG in sodium chloride 0.9% 250 ML 250 MG IV (20:24)
[2020-05-03] VITALS (29 sets, daily range): BP systolic 93–133; BP diastolic 62–81; PULSE 54–96; RESP 11–27; TEMP 36.9; O2SAT 80–95
[2020-05-03 04:08] LABS: ABG PCO2 38.3 mmHg (35-45); ABG PH Result 7.44 (7.35-7.45); Arterial Blood Gas Hematocrit 41.3 % (42-52); Base Excess ABG 1.5 mmol/L (-2.0-2.0); Blood Gas Allen Test Pos; Blood Gas Operator Identificat CAK; Blood Gas Sample Site Radial, right; Blood Gas Sample Type Arterial; HCO3 ABG 25.7 mmol/L (22-26); Oxygen Device NC; PO2 ABG 75.1 mmHg (80.0-100.0)
[2020-05-03 05:04] LABS: Hematocrit 38.1 % (42.0-52.0); Hemoglobin 12.7 g/dL (11.7-16.6); Mean Corpuscular HGB Conc 33.3 g/dL (30.0-36.0); Mean Corpuscular Volume 92.9 fL (80-94); Mean Platelet Volume 10.4 fL (7.4-10.4); Platelet Count 547 10^3/cmm (130-400); Red Cell Distribution Width 13.3 % (12.1-15.1); White Blood Count 13.6 10^3/uL (4.0-10.0)
[2020-05-03 05:18] LABS: Fibrinogen 623 mg/dL (174-498)
[2020-05-03 05:26] LABS: D Dimer 0.35 ug/mIFEU (0-0.59)
[2020-05-03 05:30] LABS: NT Pro B Type Natriuretic Pept 93 pg/mL (0-125); Procalcitonin 0.12 ng/mL (0-0.5)
[2020-05-03 05:32] LABS: Alanine Aminotransferase 34 U/L (0-41); Albumin Level 2.8 g/dL (3.5-5.2); Alkaline Phosphatase 82 IU/L (40-130); Anion Gap 15.9 (5-19); Aspartate Amino Transferase 29 U/L (0-40); Blood Urea Nitrogen 20 mg/dL (8-23); Calcium 7.7 mg/dL (8.5-10.5); Carbon Dioxide 21 mmol/L (22-29); Chloride 108 mmol/L (98-107); Globulin 2.6 g/dL (1.3-4.6); Glomerular Filtration Rate 135.2 mL/min (90-130); Glucose 139 mg/dL (65-115); Osmolality Calculated 297 mOsm/kg (285-295); Potassium 3.9 mmol/L (3.5-5.1); Sodium 141 mmol/L (136-145); Total Bilirubin 0.2 mg/dL (0.15-1.2); Total Protein 5.4 g/dL (6.6-8.7)
[2020-05-03] MEDS: sucralfate 1 gm Tablet PO ×2 (05:35→16:00)
[2020-05-03 05:44] LABS: C Reactive Protein 33.5 mg/L (0.0-4.9); Lactate Dehydrogenase 264 U/L (135-225)
--- NOTE | 2020-05-03 06:00 | ECG_ITS ---
[facility] ED Test Date: 2020-05-03 Pat Name: Kennedy Navarro Department: Room: ICU19 Gender: Male Bioinformatics Developer: : 1955 Requested By: Bala Jacob Order Number: [id number] Lucia MD: Nargis Lynne M.D. Measurements Intervals [place] Rate: 61 P: 47 [place]: 171 QRS: 16 QRSD: 104 T: 50 QT: 403 QTc: 406 Interpretive Statements SINUS RHYTHM Compared to ECG 05/02/2020 05:11:54 No significant changes Electronically Signed On 05-11-2020 6:53:35 ORTHOPEDIC DENTIST by Nargis Lynne M.D. [id number]
--- NOTE | 2020-05-03 06:00 | XR_ITS ---
WS: [id number] XR chest 1V portable [id number] REASON FOR EXAM: covid FINDINGS: Compared to the examination of 05/01/2020, the infiltrates and atelectasis in the lungs is relatively unchanged. There has been resolution of an area of linear atelectasis in the left lower lung. No other interval change or new finding is noted. XR/XR chest 1V portable [id number] IMPRESSION: Stable abnormal chest.
--- NOTE | 2020-05-03 06:23 | PC.NURSE ---
Patient had a good night. A couple of episodes of dipping down into the upper 80's but only for a short stent. patient did go into the 110-120's upon exertion getting up to the bedside commode but recovered very well. No voiced pain or concerns at this time. Patient had moderate to large soft formed BM this shift.
[2020-05-03 07:19] LABS: Slide Review Slide Review Perform
[2020-05-03 07:22] LABS: Absolute Neutrophil 12.4 10^3/cmm (1.4-6.5); Absolute Segmented Neutrophil 9.8 10/cmm (1.6-7.1); Band Neutrophils Absolute 2.6 10^3/cmm (0.0-1.2); Lymphocytes 2 %; Monocytes Absolute 0.1 10^3/cmm (0.1-0.6); Platelet Estimate Increased (Normal); Segmented Neutrophils 72 %; Total Cells Counted 100 (0-100)
[2020-05-03 07:23] LABS: Eosinophils 0 %
[2020-05-03] MEDS: ascorbic acid 500 mg Tablet 1000 MG PO ×2 (08:11→17:36)
[2020-05-03] MEDS: pantoprazole 40 mg SDV IVP ×2 (08:11→20:54)
[2020-05-03] MEDS: zinc gluconate 50 mg Tablet PO (08:12)
[2020-05-03] MEDS: guaiFENesin 600 mg Tablet PO ×2 (08:12→17:36)
[2020-05-03] MEDS: albuterol 8 gm MDI 2 PUFF INHALATION ×3 (08:43→20:09)
[2020-05-03] MEDS: enoxaparin 100 mg/mL Syringe 80 MG SUBCUT (09:09)
[2020-05-03] MEDS: benzonatate 100 mg Capsule PO ×2 (15:14→20:08)
[2020-05-03] MEDS: predniSONE 20 mg Tablet 40 MG PO (15:52)
--- NOTE | 2020-05-03 16:31 | P.PN_ITS ---
Subjective Subjective: Interval history: No acute events overnight. Patient is working well with incentive spirometry and Acapella. Patient walked once in the viral ICU today. Currently requiring 3 L oxygen supplementation to keep saturation at 92%. He denies of having any nausea, vomiting, headache. Appetite is appropriate as per the patient. Vitals/I&O/Wt Last Vital Signs Temp 98.2 F 05/02/20 12:52 Pulse 66 05/03/20 14:16 Resp 16 05/03/20 14:13 BP 98/77 05/02/20 09:00 Pulse Ox 93 05/03/20 14:13 05/03/20 05/03/20 05/03/20 06:59 14:59 22:59 Intake Total 200 / 1520 400 / 400 Output Total 300 / 1300 1200 / 1200 Balance -100 / 220 -800 / -800 Physical Exam Narrative: EXAM NARRATIVE: General: No acute distress, AO x3 HEENT: PERRLA, pupils bilaterally equal and reactive Chest: Normal vesicular breath sounds, diffuse rhonchi all over the lung bal, more than right middle and upper zone than left, equal good air entry bilaterally CVS: S1-S2 regular, no murmurs, no tachycardia, no gallops, no rubs Abdomen: Soft, nontender, no organomegaly, bowel sounds present Neuro: No focal deficits, no facial deformity, AO x3, power 5/5 in all limbs Data : 05/03/20 04:00 05/03/20 04:00 Micro: Microbiology 05/02/20 10:20 Urine Culture - Preliminary Urine,Voided 05/01/20 21:55 Blood Culture - Preliminary Blood NEGATIVE TO DATE 05/02/20 10:20 Legionella Urinary Antigen - Final Unknown Source 05/02/20 10:20 Bacterial Antigens - Final Urine,Voided A&P Assessment and plan (1) Acute respiratory failure with hypoxia: Status: Acute (2) Pneumonia due to COVID-19 virus: Status: Acute (3) Secondary bacterial pneumonia: Status: Acute Additional A&P Information Acute hypoxic respiratory failure secondary to COVID-19 pneumonia: Able to wean down oxygen earlier but as compared to yesterday currently on 3 L. Last dose of remdesivir today. Switch over to oral prednisone from Decadron. Patient will most likely require 2 weeks slow steroid taper. Advair, Spiriva. Vitamin C, zinc. Aggressive pulmonary toilet with flutter valve, incentive spirometry. Switch over to Eliquis today. Would most likely require 2 weeks of anticoagulation post discharge. Echocardiogram done earlier in the admission shows an EF of 55 to 60% without any valvular abnormality or diastolic dysfunction. Continue to monitor inflammatory markers including CRP, fibrinogen and LDH. Out of bed to chair, ambulation. Procalcitonin trending down to normal. Patient still has some leukocytosis most likely secondary to steroids. Patient has remained afebrile last 24 hours. Stop azithromycin. MRSA swab awaited. For now continue with ceftriaxone to finish a 5-day course. As patient is on high-dose steroids we will continue to monitor blood sugars daily. If needed we will start patient on nystatin swish and swallow Keep blood pressures less than 140/90 mmHg with mean arterial pressure over 65mmhg. Limited resuscitation.-He does not want chest compressions, does not want shocking of the heart, does want medications per ACLS, but only wants it for short period of time Regular diet. Eliquis for DVT prophylaxis. Attestations Medical Necessity Statement*: Patient requires further hospitalization for management of hypoxia because of COVID-19 pneumonia while he finishes a course of remdesivir. Time Spent in Patient Care: Greater than 35 minutes (>than 50% of time spent in counselling and/or direct pt care on unit) . Coding Level of Care Code Acute Thermostatic Controls Supervisor for Valentino Reece Diagnoses Acute respiratory failure with hypoxia J96.01 Pneumonia due to COVID-19 virus U07.1; J12.89 Secondary bacterial pneumonia J15.9
[2020-05-03] MEDS: apixaban 5 mg Tablet PO (17:36)
[2020-05-03] MEDS: cefTRIAXone 1,000 MG in sodium chloride 0.9% (plus) 50 ML 100 MG IV (20:07)
[2020-05-04] VITALS (22 sets, daily range): BP systolic 101–136; BP diastolic 59–82; PULSE 62–90; RESP 9–31; TEMP 36.7–37.1; O2SAT 81–94
[2020-05-04 04:57] LABS: Basophils % 0.3 %; Eosinophils % 0.2 %; Hematocrit 40.2 % (42.0-52.0); Lymphocytes % 6.8 %; Mean Corpuscular HGB Conc 32.3 g/dL (30.0-36.0); Mean Corpuscular Hemoglobin 30.4 pg (28.0-34.0); Mean Corpuscular Volume 94.1 fL (80-94); Mean Platelet Volume 9.8 fL (7.4-10.4); Monocytes # 0.8 10^3/uL (0.2-0.9); Monocytes % 5.5 %; Neutrophils # 11.28 10^3/uL (1.8-7.7); Neutrophils % 75.9 %; Nucleated Red Blood Cells % 0 %; Platelet Count 574 10^3/cmm (130-400); Red Blood Count 4.27 10^6/uL (4.1-5.3); Red Cell Distribution Width 13.4 % (12.1-15.1); White Blood Count 14.9 10^3/uL (4.0-10.0)
[2020-05-04 05:25] LABS: Alanine Aminotransferase 42 U/L (0-41); Albumin Level 3.1 g/dL (3.5-5.2); Alkaline Phosphatase 88 IU/L (40-130); Anion Gap 14.1 (5-19); Aspartate Amino Transferase 33 U/L (0-40); Blood Urea Nitrogen 19 mg/dL (8-23); Carbon Dioxide 24 mmol/L (22-29); Chloride 103 mmol/L (98-107); Globulin 3.2 g/dL (1.3-4.6); Glomerular Filtration Rate 113.2 mL/min (90-130); Glucose 156 mg/dL (65-115); Osmolality Calculated 289 mOsm/kg (285-295); Potassium 4.1 mmol/L (3.5-5.1); Sodium 137 mmol/L (136-145); Total Bilirubin 0.3 mg/dL (0.15-1.2); Total Protein 6.3 g/dL (6.6-8.7)
[2020-05-04 05:32] LABS: Lactate Dehydrogenase 306 U/L (135-225); NT Pro B Type Natriuretic Pept 44 pg/mL (0-125)
[2020-05-04 05:59] LABS: Calcium 8.8 mg/dL (8.5-10.5)
[2020-05-04] MEDS: sucralfate 1 gm Tablet PO (06:05)
[2020-05-04 06:09] LABS: Fibrinogen 699 mg/dL (174-498)
[2020-05-04 06:11] LABS: D Dimer 0.35 ug/mIFEU (0-0.59)
[2020-05-04 06:15] LABS: Slide Review Slide Review Perform
[2020-05-04] MEDS: pantoprazole 40 mg SDV IVP (08:06)
[2020-05-04] MEDS: zinc gluconate 50 mg Tablet PO (08:37)
[2020-05-04] MEDS: guaiFENesin 600 mg Tablet PO (08:37)
[2020-05-04] MEDS: benzonatate 100 mg Capsule PO ×2 (08:37→14:11)
[2020-05-04] MEDS: apixaban 5 mg Tablet PO (08:37)
[2020-05-04] MEDS: predniSONE 20 mg Tablet 40 MG PO (08:38)
[2020-05-04] MEDS: albuterol 8 gm MDI 2 PUFF INHALATION (08:46)
[2020-05-04] MEDS: ascorbic acid 500 mg Tablet 1000 MG PO (08:53)
--- NOTE | 2020-05-04 10:50 | PC.SOCIAL ---
[facility] Updated Page 2 of IMM updated with patient's spouse over the phone. She verbalizes understanding. Initialed, dated, and timed and will be sent to Medical Records upon d/c to be placed in patient's EHR.
--- NOTE | 2020-05-04 12:34 | PM.DCS ---
Discharge Providers Date of Admission: 04/29/20 15:49 Date of Discharge: May 04, 2020 Attending Provider at Admission: Bala Jacob MD Attending Provider at Discharge: Raad Quintero MD Primary Care Provider: Curtis Cobb MD Diagnoses at Discharge Discharge Diagnosis (1) Acute respiratory failure with hypoxia: Status: Acute (2) Pneumonia due to COVID-19 virus: Status: Acute (3) Secondary bacterial pneumonia: Status: Acute Reason for Visit Reason for Visit: COVID+ (TESTED 1 WK AGO), WORSENING SYMPTOMS Hospital Course Hospital Course Kennedy Navarro is a 64 year old male with no significant past medical history, who presents to [facility] due to complaints of shortness of breath, fevers, cough, trouble catching his breath. Patient has known positive, tested positive a week ago, he says that since then he has had low-grade fevers, cough, fatigue, malaise. He was able to deal with his symptoms, however he started to develop shortness of breath at rest, trouble catching his breath, cough associate with shortness of breath. No joint pains, no diarrhea, no abdominal pain, no changes in his taste sensation, no lightheadedness, dizziness. Denies a cardiovascular history. Denies history of COPD. Smoked briefly in his 20s. Patient was admitted to the viral ICU because he was requiring oxygen supplementation on admission and was started on treatment with remdesivir, Decadron for moderate COVID-19 pneumonia. He finished a 5-day course and is empirically markers for regularly monitored. He responded well to the treatment and has remained hemodynamically stable during the hospitalization. His oxygen requirements continue to come down at present is requiring 2 to 3 L at rest to maintain saturation over 92% and is able to walk for 15 to 20 minutes without having difficulty in breathing though still requiring oxygen. Home O2 evaluation has been done prior to discharge. He is been discharged in hemodynamically stable condition on Eliquis as a blood thinner for next 2 weeks, vitamin C, zinc, Advair and Spiriva for inhalation treatment and levofloxacin for three more days to finish a course for community-acquired pneumonia. He is advised to follow-up with his primary care provider within next 1 to 3 days. Prior to discharge home health was offered to patient for safe discharge needs. He states he has fairly good support at home he does not think he would need home health. Physical Exam Narrative: EXAM NARRATIVE: General: No acute distress, AO x3 HEENT: PERRLA, pupils bilaterally equal and reactive Chest: Normal vesicular breath sounds, diffuse rhonchi all over the lung bal, more than right middle and upper zone than left, equal good air entry bilaterally CVS: S1-S2 regular, no murmurs, no tachycardia, no gallops, no rubs Abdomen: Soft, nontender, no organomegaly, bowel sounds present Neuro: No focal deficits, no facial deformity, AO x3, power 5/5 in all limbs Discharge Data Data Completed and Pending: Completed Studies During Hospitalization Category Date Time Status CT angio chest PE protcl [id number] Stat Cat Scan 04/29/20 14:38 Completed XR chest 1V duane ble 21949 Q48H Exams 05/03/20 06:00 Completed XR chest 1V duane ble [id number] Routine Exams 04/30/20 07:00 Completed XR chest 1V daune ble [id number] Routine Exams 05/01/20 07:00 Completed XR chest 1V duane ble [id number] Stat Exams 04/29/20 14:37 Completed CV echo complete* [id number] Routine Ultrasound 04/30/20 19:38 Completed Pending at discharge Category Date Time Status XR chest 1V duane ble [id number] Q48H Exams 05/05/20 06:00 Ordered XR chest 1V duane ble [id number] Q48H Exams 05/07/20 06:00 Ordered Blood Culture Sta t Lab 05/01/20 21:55 Results C Reactive Protei n AM LABS Lab 05/05/20 04:00 Ordered D Dimer AM LABS Lab 05/05/20 04:00 Ordered Fibrinogen AM LAB S Lab 05/05/20 04:00 Ordered Lactate Dehydroge nase AM LABS Lab 05/05/20 04:00 Ordered NT Pro B Type Malathi riuretic Pept AM L ABS Lab 05/05/20 04:00 Ordered Sputum Culture an d Gram Stain Stat Lab 04/29/20 14:37 Uncollected Labs from last 24 hours 05/04/20 05/04/20 05/04/20 04:05 04:05 04:05 WBC 14.9 H RBC 4.27 Hgb 13.0 Hct 40.2 L MCV 94.1 H MCH 30.4 MCHC 32.3 RDW 13.4 Plt Count 574 H MPV 9.8 Neut % (Auto) 75.9 Lymph % (Auto) 6.8 [place] % (Auto) 5.5 Eos % (Auto) 0.2 Baso % (Auto) 0.3 Neut # (Auto) 11.28 H Lymph # (Auto) 1.0 [place] # (Auto) 0.8 Eos # (Auto) 0.0 Baso # (Auto) 0.0 Nucleated RBC % (a uto) 0 Nucleated RBCs # 0.0 Fibrinogen D-Dimer Sodium 137 Potassium 4.1 Chloride 103 Carbon Dioxide 24 Anion Gap 14.1 BUN 19 Creatinine 0.7 GFR Calculation 113.2 Glucose 156 H Calculated Osmolal ity 289 Calcium 8.8 Total Bilirubin 0.3 AST 33 ALT 42 H Alkaline Phosphata se 88 Lactate Dehydrogen ase 306 H C-Reactive Protein 24.0 H NT-Pro-B Natriuret Pep 44 Total Protein 6.3 L Albumin 3.1 L Globulin 3.2 05/04/20 04:05 WBC RBC Hgb Hct MCV MCH MCHC RDW Plt Count MPV Neut % (Auto) Lymph % (Auto) [place] % (Auto) Eos % (Auto) Baso % (Auto) Neut # (Auto) Lymph # (Auto) [place] # (Auto) Eos # (Auto) Baso # (Auto) Nucleated RBC % (a uto) Nucleated RBCs # Fibrinogen 699 H D-Dimer 0.35 Sodium Potassium Chloride Carbon Dioxide Anion Gap BUN Creatinine GFR Calculation Glucose Calculated Osmolal ity Calcium Total Bilirubin AST ALT Alkaline Phosphata se Lactate Dehydrogen ase C-Reactive Protein NT-Pro-B Natriuret Pep Total Protein Albumin Globulin Addt'l Data from Hospital Stay: Echocardiogram April 2020 CONCLUSIONS LV systolic function is normal with EF of 55 to 60%. Diastolic function is normal. Significant valvular heart disease is noted. No prior comparison studies are available. Vitals: Last Vital Signs Temp 98.8 F 05/04/20 10:18 Pulse 70 05/04/20 10:00 Resp 20 H 05/04/20 10:00 BP 101/61 05/04/20 10:00 Pulse Ox 89 L 05/04/20 10:00 Discharge Plan Discharge Patient Disposition: Home Condition: Stable Prescriptions: New Advair Diskus 250-50 mcg/dose Blister With Device 1 puff inhalation BID.RESPIRATORY 14 Days Qty: 28 RF: 0 sucralfate 1 gram Tablet 1 g PO BIDAC 10 Days Qty: 10 RF: 0 Vitamin C 500 mg Tablet 1,000 mg PO BID 14 Days Qty: 56 RF: 0 benzonatate 100 mg Capsule 100 mg PO TID PRN (Reason: cough) Qty: 10 RF: 0 zinc gluconate 50 mg Tablet 50 mg PO DAILY 14 Days Qty: 14 RF: 0 Spiriva with HandiHaler 18 mcg Capsule, W/Inhalation Device 18 mcg inhalation DAILY.RESPIRATORY 14 Days Qty: 14 RF: 0 Eliquis 5 mg Tablet 5 mg PO BID 14 Days Qty: 28 RF: 0 Mucinex 600 mg Tablet Extended Release 12hr 600 mg PO BID 7 Days Qty: 14 RF: 0 Medrol (Cody) 4 mg tablets,dose pack See Rx Instructions .ROUTE .COMPLEX Qty: 21 RF: 0 levofloxacin 500 mg tablet 500 mg PO DAILY 3 Days Qty: 3 RF: 0 Protonix [address] for susp in packet 40 mg PO DAILY Qty: 14 RF: 0 No Action No Known Home Medications RF: 0 Discharge Orders: Discharge Order (Routine); Ordered 05/04/20 Ordered By: Raad Quintero Other Ambulatory Orders: DME: Oxygen (Order) Location: None Selected Ordered By: Raad Quintero Referrals: [facility] – [place] [Outside] Curtis Cobb MD [Primary Care Provider] - 1-3 days (Follow up with Dr Cobb on SaturdayMay 10 at 11:30) Discharge Diet: Regular Discharge Activity: Resume usual activity and Increase activity as tolerated Activity Restrictions/Additional Instructions: Please follow-up with your primary care provider within next 1 to 3 days. You will be on Eliquis which is a blood thinner for next 2 weeks. You will also be on a steroid which needs to be tapered as directed. You will be on vitamin C and zinc for next 2 weeks. You will be on levofloxacin which is an antibiotic for next 3 days. Please maintain social distancing and home quarantine for next 2 weeks. If you are in public please wear a mask. If you have any fever, difficulty in breathing, bleeding from your nose/gums/bowel movements please come to the ER. Discharge Attestations Time Spent in Discharge Care*: greater than 30 min Specific Discharge Activities: educating patient, educating and/or supporting family/caregiver, discussing with case finisher/social workers/dc planners, documenting/other paperwork and evaluating patient/reviewing data Status at Discharge: Cognitive status at discharge: cognitively intact, Behavioral status at discharge: cooperative, Functional status at discharge: independent ambulation Overall status at discharge: patient is progressing back to baseline Quality Metrics Clinical Quality Measures During this hospital stay, did patient experience: None Coding Level of Care Code Acute Medical Insurance Biller for [facility] Fwd Diagnoses Acute respiratory failure with hypoxia J96.01 Pneumonia due to COVID-19 virus U07.1; J12.89 Secondary bacterial pneumonia J15.9
--- NOTE | 2020-05-04 13:24 | PC.NURSE ---
Spoke to pt about his discharge pharmacy. Discussed meds to beds from [facility] pharmacy. Pt preferred to use his own pharmacy [facility].
--- NOTE | 2020-05-06 13:19 | PC.SOCIAL ---
Spoke with the patient on the phone about the discharge information they received spoke about signs and symptoms to watch for such as; blue lips or face, fever of 104 or higher, trouble breathing or catching breath, chest pain lasting longer than 5 minute, confusion or trouble waking up. We also spoke about ways to improve the immune system, these included; eating and drinking well, eating fruits and vegetables, lean meat, low fat dairy products, keeping up with immunizations such as flu/pneumonia/shingles shots, going to all appointments and follow ups, lessening and stress. We also spoke about ways to stop or prevent the spread of the COVID 19. These included; social distancing at all times, washing hands longer than 20 seconds with a good lather, sanitizing surfaces in home and in vehicle, masking up when possible and washing any cloth masks after use and allow them to dry completely before next use, sneezing or coughing into arm, restricting company or going out in public. We spoke a little about the benefits of plasma donation. He stated that he was interested in info. Patient has no questions, but I did inform him that since he has Roxie prescribed, that I would seak with [facility] and see if I can give them a coupon so he does not have tho pay the full fernandez.
== END 2020-05-04 16:14 | disposition home or self-care (01) | DRG 177 ==
LOC: ER 17:37 → ICU 17:47
PROVIDERS: Admitting Provider Family Medicine; Emergency Provider Family Medicine; PCP Family Medicine; Visit Provider Student in an Organized Health Care Education/Training Program
DX: U07.1 COVID-19 (principal); J12.89 Other viral pneumonia; J96.01 Acute respiratory failure with hypoxia; J15.9 Unspecified bacterial pneumonia; Z87.442 Personal history of urinary calculi; Z87.891 Personal history of nicotine dependence; R91.8 Other nonspecific abnormal finding of lung field
CPT/HCPCS: 12345; 36415; 36600; 71045; 71275; 80053; 82550; 82803; 83540; 83550; 83605; 83615; 83735; 83880; 84100; 84145; 84443; 84484; 85007; 85025; 85378; 85384; 85610; 86140; 86403; 87040; 87086; 87449; 87641; 87804; 93005; 93306; 94640; 94664; 96372; 96375; 99281; C9113; J0456; J0696; J1100; J1650; J3535; J7050; J7512; Q9967

== ENCOUNTER 2020-05-24 12:23 | Outpatient (CLI) | payer MEDICARE, BC, SELFPAY ==
--- NOTE | 2020-05-24 12:36 | CT_ITS ---
WS: [id number] CT scan of the abdomen and pelvis without Oral and IV contrast. Additional two-dimensional coronal a nd sagittal reconstruction was performed. 05/24/2020 Clinical Data: HEMATURIA RIGHT FLANK PAIN Comparison: None. DLP: 1228.[address] scans at use at least one of these dose optimization techniques: automat ed exposure control; mA and/or kV adjustment per patient size (includes targeted exams where dose is matched to clinical indication); or iterative reconstruction. Findings: There are patchy groundglass opacities in the lower lobes consistent with pneumonia. The lower lungs show no nodules, masses or effusions. The liver, gallbladder, spleen, adrenal glands and pancreas are normal. There is a nonobstructing 0.3 cm lower pole right renal calculus with a low density area measuring 2 .35 cm which is probably a cyst. The left kidney shows renal pelvic dilatation and there is a 0.7 cm obstructing left mid ureteral calculus. No renal masses are seen. The abdominal aorta is normal in si ze. No appendicitis or diverticulitis is seen. The stomach, small bowel and colon show no abnormalities. No abscess, adenopathy, ascites, mass, obstruction or free air is seen. The bladder is unremarkable. The prostate is enlarged. No inguinal hernia is seen. The bones of the lower thorax, lumbar spine, pelvis, and hips show moderate degenerative change of th e lower thoracic vertebral bodies. CT/CT kidney stone [id number] Impression: 1. Obstructing left 0.7 cm mid ureteral calculus with left renal pelvic dilatat ion. 2. Nonobstructing 0.3 cm inferior right renal calculus with inferior pole right renal cyst.
== END 2020-05-24 12:24 | disposition home or self-care (01) ==
LOC: RADWPI 12:30
PROVIDERS: PCP Family Medicine; Visit Provider Family Medicine
DX: R31.9 Hematuria, unspecified (principal); N20.1 Calculus of ureter; N28.1 Cyst of kidney, acquired
CPT/HCPCS: 74176

== ENCOUNTER 2020-05-30 08:10 | Outpatient (CLI) | payer MEDICARE, BC, SELFPAY ==
--- NOTE | 2020-05-30 08:00 | XR_ITS ---
WS: [id number] ABDOMEN: SUPINE FILM HISTORY: KIDNEY STONE COMPARISON: 05/24/2020 Normal bowel gas pattern. Right kidney: 2 mm calcification lower pole. No ureteral calcification. Left kidney: 8.6 mm irregular shaped calcification in the mid LEFT ureter at the L4-5 disc level. XR/XR KUB [id number] IMPRESSION: Mid LEFT ureteral 8.6 mm calcification. Not significantly migrated inferiorly s rigoberto the CT of 05/24/2020.
== END 2020-05-30 08:11 | disposition home or self-care (01) ==
LOC: RAD 08:22
PROVIDERS: PCP Family Medicine; Visit Provider Urology
DX: N20.0 Calculus of kidney (principal); N20.1 Calculus of ureter
CPT/HCPCS: 74018; 81003

== ENCOUNTER 2020-05-30 15:26 | Day surgery (SDC) | payer BC, MEDICARE, SELFPAY ==
[2020-05-30] VITALS (8 sets, daily range): BP systolic 131–150; BP diastolic 76–92; PULSE 81–114; RESP 12–18; TEMP 36.3–36.6; O2SAT 96–100; BMI 25.4
--- NOTE | 2020-05-30 16:14 | ANES.PREANE2 ---
Pre-Anesthetic Assessment Pre-Anesthetic Assessment: Height/Weight: Height 1.78 m Weight 80.286 kg Preop Diagnosis: Large obstructing left ureteral calculus Proposed Procedure: Operation Date: 05/30/20 16:40 Proposed Procedures p ESWL(Not Applicable) - Roel Gregg MD s Ureteral Stent Placement(Left) - Roel Gregg MD Was Beta Miguel taken within 24 hours: N/A Last intake: Intake Last Liquid Date 05/30/20 Last Liquid Time 06:00 Last Solid Date 05/29/20 Last Solid Time 22:00 Social: Social History: No alcohol and No tobacco Exam: Pre-Anes Outpt Exam: alert, oriented x 3, clear to auscultation bilaterally and regular rate & rhythm Airway: Submandibular: WNL Cervical ROM: WNL MP: 2 Dentition: Full Pulmonary: Pulmonary: SOB (Post Covid (early April)) CV/HEM: CV/HEM: None reported : Comments: Stones Hepatic: Hepatic: None reported GI: GI: None reported Metabolic: Metabolic: None reported Musc/skel: Musc/skel: None reported Neuropsych: Neuropsych: None reported Anesthetic Plan: ASA status: 2 Anesthesia: General PFSH Anesthesia PFSH: Medical History Duodenal ulcer Gastric ulcer History of nephrolithiasis Surgical History History of colonoscopy Status post laparotomy For perforated duodenal ulcer Family History Mother Cancer Melanoma Denies family history of Anesthesia complication Bleeding disorder Social History Smoking and tobacco status: former smoker Alcohol intake: never Data Anesthesia Cardiac Studies: No Data to Display
[2020-05-30] MEDS: sodium chloride 0.9% 1,000 ML 30 ML IV (16:25)
--- NOTE | 2020-05-30 17:03 | P.HPUD_ITS ---
Surgery/Procedure H&P Update DATE OF PROCEDURE: May 30, 2020 DATE H&P PERFORMED: 05/30/20 H&P UPDATE INFORMATION: I have reviewed H&P completed within last 30 days, I have examined patient prior to procedure, No changes to prior documentation and H&P is in [facility] EMR on date indicated PREOP DIAGNOSIS: Large obstructing left ureteral calculus PLANNED PROCEDURE: Operation Date: 05/30/20 16:40 Proposed Procedures p ESWL(Not Applicable) - Roel Gregg MD s Ureteral Stent Placement(Left) - Roel Gregg MD
[2020-05-30] MEDS: fentaNYL 50 mcg/mL INJ 2mL IVP (17:18)
--- NOTE | 2020-05-30 19:11 | P.OP_ITS ---
Operative Report Date of procedure: May 30, 2020 Pre-op Diagnosis: Large obstructing left ureteral calculus Post-op diagnosis: same Procedure Done: 1. Cystoscopy with left ureteral stent placement (6 [place] by 28 cm double- pigtail without string) 2. Extracorporeal shockwave lithotripsy to left mid ureteral stone Pathology: none sent Surgeon: Cristino Agricultural [employer] Inspector: Lithotripsy Milk Treater: Carlos Anesthesia: General Estimated blood loss: None Urine output: Not measured Complications: None Findings: 1. Initially some difficulty in getting the focal point onto the stone but ultimately that was achieved with good fragmentation with 2500 shocks administered. 2. 6 [place] by 28 cm double-pigtail stent left indwelling at the completion of the procedure Condition: stable Disposition: PACU Brief History: Kennedy is a very pleasant 64-year-old white male known to me for history of stones who presented recently to the emergency department with complaints of left renal colicky symptoms. Work-up included a CT scan that showed a large stone obstructing the left mid ureter roughly L4 position. There was no evidence of infection and he was treated conservatively initially. Presented to the clinic today when the stone was in roughly the same position. It measured >1 cm in size it was felt to not likely passed spontaneously even given significant amount of time and for that reason he elected to proceed with treatment and after detailed discussion of endoscopy versus ESWL he chose the latter with stent placement. - Procedure: After urgent evaluation examination and obtaining of informed consent he was taken to the operating suite on 05/30/2020 where general anesthesia was administered without difficulty after appropriate timeout was performed, SCDs confirmed to be functioning, preoperative antibiotics administered, beta-lakesha protocol confirmed. Positioned on the Dornier unit in dorsolithotomy position paying careful attention to avoiding pressure points. The stone was localized easily with fluoroscopy. 21 [place] cystoscope with 30 degree lens was introduced into the urethral meatus and advanced into the bladder under videoscopy. Bladder was systematically examined and found to be within normal limits. Flexible tip guidewire was then easily advanced up the left ureter bypassing the stone and curling in the area of the upper pole calyx. A 6 [place] by 28 cm double-pigtail stent was then advanced over the guidewire through the cystoscope into appropriate position as confirmed via fluoroscopy and cystoscopy easily bypassing the stone. He was then repositioned in supine position on the Dornier unit. The stone was easily identifiable in place at the focal point utilizing biplanar fluoroscopy. Shockwave therapy was initiated. Initial intensity was 1 with advancement to 4. Rate was 70 throughout the procedure. A total of about 2500 shocks were administered with good change to the stone. At some point the C arm position became fixed at approximately 15 degrees oblique which did not affect the procedure but made it more difficult to see the full spectrum of results. What was visible though appeared to be a good fragmentation. He tolerated procedure well without complications and was awakened in the operating room and returned to the recovery room in stable condition. -
--- NOTE | 2020-05-30 19:59 | ANE.PACU2 ---
Inpatient post-anesthesia follow up: Airway intact: Yes Vital signs: Temperature 98 F Pulse Rate 83 Respiratory Rate 16 Blood Pressure 131/88 Pulse Oximetry 97 Oxygen Delivery Me thod Room Air Oxygen Flow Rate 6 Fraction of Inspir ed Oxygen Hydration adequate: Yes Nausea and vomiting: No Pain level: 2 Mental status: Baseline
== END 2020-05-30 20:25 | disposition home or self-care (01) ==
PROVIDERS: PCP Family Medicine; Visit Provider Urology
PROC: (CPT 50590; principal; 2020-05-30 16:40)
PROC: (CPT 50605; 2020-05-30 16:40)
PROC: 0TJB8ZZ Inspection of Bladder, Via Natural or Artificial Opening Endoscopic (ICD-10-PCS; CPT 52000; 2020-05-30 16:40)
DX: N20.1 Calculus of ureter (principal); Z87.891 Personal history of nicotine dependence
CPT/HCPCS: 50590; 52332; 12345; 96374; C2625; J0690; J1100; J2250; J2405; J2704; J3010; J3490; J7030

== ENCOUNTER 2020-06-09 11:07 | Outpatient (CLI) | payer BC, MEDICARE, SELFPAY ==
--- NOTE | 2020-06-09 11:17 | XR_ITS ---
WS: [id number] Exam: XR KUB [id number] Date/Time of Exam: 06/09/2020 11:24 AM Reason For Exam: URETERAL STONE Comparison 07/31/2019. A left-sided ureteral stent is noted appearing to be in satisfactory location. No bowel obstruction o r free air. No abnormal abdominal calcifications noted. Visualized organ margins are intact. XR/XR KUB [id number] IMPRESSION: 1. Left-sided ureteral stent in place appearing to be in appropriate location. 2. No acute abdominal finding.
== END 2020-06-09 11:08 | disposition home or self-care (01) ==
LOC: RAD 11:10
PROVIDERS: PCP Family Medicine; Visit Provider Urology
DX: N20.1 Calculus of ureter (principal); Z96.0 Presence of urogenital implants
CPT/HCPCS: 74018

== ENCOUNTER 2020-06-09 11:48 | Outpatient (CLI) | payer BC, MEDICARE, SELFPAY | END 2020-06-09 11:49 | disposition home or self-care (01) | LOC: LAB 03-22 14:13 | PROVIDERS: PCP Family Medicine; Visit Provider Urology | DX: N13.30 Unspecified hydronephrosis (principal) | CPT/HCPCS: 81003 ==

== ENCOUNTER 2022-10-13 15:47 | Emergency (ER) | payer MEDICARE, OTHER, SELFPAY ==
[2022-10-13 15:49] VITALS: BP 171/84; PULSE 59; RESP 20; TEMP 36.8; O2SAT 99; BMI 25.7
--- NOTE | 2022-10-13 16:31 | CTR_ITS ---
PROCEDURE INFORMATION: Exam: CT Abdomen And Pelvis Without Contrast Exam date and time: 10/13/2022 4:53 PM Age: 66 years old Clinical indication: Abdominal pain; Flank; Right; Prior surgery; Surgery date: 6+ months; Surgery type: Perfed ulcer; Patient HX: HX of renal calc; Additional info: Right sided flank pain/abdominal pain TECHNIQUE: Imaging protocol: Computed tomography of the abdomen and pelvis without contrast. Radiation optimization: All CT scans at this facility use at least one of these dose optimization techniques: automated exposure control; mA and/or kV adjustment per patient size (includes targeted exams where dose is matched to clinical indication); or iterative reconstruction. REPORTING DATA: Count of CT and Cardiac NM exams in prior 12 months: This patient has received 0 known CTs and 0 known cardiac nuclear medicine studies in the 12 months prior to the current study. COMPARISON: CT kidney stone [id number] 05/24/2020 1:08 PM RADIATION DOSE METRICS: Total DLP (mGy-cm): 604.59 FINDINGS: Lungs: There is subpleural atelectasis of the dependent portions of the lungs. Several stable right basilar pulmonary nodules are stable dating back to May 24, 2020. No follow-up is necessary. Liver: Unremarkable.No mass. Gallbladder and bile ducts: Normal. No calcified stones. No ductal dilation. Pancreas: The pancreas is normal. Spleen: The spleen is normal. Adrenal glands: The adrenal glands are normal. The adrenal glands are normal. Kidneys and ureters: There is no evidence of left hydronephrosis. There is a nonobstructing 8 mm calculus lower pole right kidney. There is a 3.5 cm fluid density cyst lower pole right kidney. There is no evidence of left hydronephrosis. There is no left nephrolithiasis. Stomach and bowel: Postoperative changes at the gastroesophageal junction are noted. There is no evidence of intestinal perforation or obstruction. Moderate diverticulosis is present in the distal colon. Although the majority of the colon is collapsed, the wall of the distal transverse, descending and sigmoid colon appears diffusely thickened and there is some very subtle fat stranding concerning the patient may have mild colitis. The loops of small bowel and stomach have an appropriate appearance. Appendix: A normal appendix is identified. Intraperitoneal space: Unremarkable. No free air. No significant fluid collection. Vasculature: The aorta is normal. Lymph nodes: Unremarkable.No enlarged lymph nodes. Urinary bladder: The bladder is normal. Reproductive: The prostate demonstrates moderate nonspecific enlargement. The seminal vesicles are normal. Bones/joints: There is [id number] right hydronephrosis with a 4 mm calculus right ureter at the level of the L4-L5 disc space. Soft tissues: Small bilateral fat filled inguinal hernias are noted. CT/CT kidney stone [id number] IMPRESSION: 1. There is [id number] right hydronephrosis with a 4 mm calculus right ureter at the level of the L4-L5 disc space. 2. Although the majority of the colon is collapsed, the wall of the distal transverse, descending and sigmoid colon appears diffusely thickened and there is some very subtle fat stranding concerning the patient may have mild colitis. Please correlate clinically. COMMENTS: Consistent with the [place] [employer]'s Incidental Findings Committee white paper (J Am Romy Radiol 2018): Any incidental renal lesion less than 1 cm or classified as too small to characterize, or any incidental cystic renal lesion characterized as simple-appearing, is likely benign. No follow-up imaging is recommended for these lesions per consensus recommendations based on imaging criteria.
--- NOTE | 2022-10-13 16:38 | ED_ITS ---
HPI - Back Pain/Injury General: Chief Complaint: Back Pain/Injury Stated Complaint: back pain, n/v Time Seen by Provider: 10/13/22 16:21 History of Present Illness: 66-year-old male presents to the emergency department chief complaint of right- sided flank pain rating to the right upper abdomen started about an hour ago while changing the oral on his car patient has a known history of kidney stone he is unaware she recent trauma or injury to his right lateral flank and right upper abdomen the patient reports the pain comes and goes away is when she does get nauseous she does not endorse any recent fevers or chills or any other associated symptoms. Patient recalls that the pain is sharp in nature. Associated symptoms: Reports abdominal pain and nausea; Deny chills, fatigue, fever(s) or vomiting Review of Systems General: Reports: 10 or more systems reviewed and unremarkable except in HPI and below Const: Denies: fever(s), chills, fatigue or malaise Eyes: Denies: change in vision or blurry vision Card: Denies: chest pain or palpitations Resp: Denies: dyspnea or productive cough GI: Reports: abdominal pain and nausea; Denies: vomiting, diarrhea or constipation : Denies: flank pain Musc: Denies: extremity pain or extremity swelling Skin/Breast: Denies: rash or pruritus Neuro: Denies: headache(s) Psych: Denies: anxiety or depression Isaac/Lymph: Denies: easy bleeding All/Imm: Denies: urticaria, throat swelling or facial swelling PFSH ED PFSH: Medical History Duodenal ulcer Gastric ulcer History of nephrolithiasis Surgical History History of colonoscopy Status post laparotomy For perforated duodenal ulcer Family History Mother Cancer Melanoma Denies family history of Anesthesia complication Bleeding disorder Social History Smoking and tobacco status: former smoker Alcohol intake: never Substance/Drug Use: never Physical Exam Const: COMMON NORMALS: patient oriented x3 and healthy appearing; apparent distress (Patient appears to be in moderate discomfort due to pain) HENMT: COMMON NORMALS: normocephalic and atraumatic HEAD & SCALP: normocephalic and atraumatic Eye: COMMON NORMALS: Equal, round and reactive pupils present and EOMs intact bilaterally PUPIL: Yes Equal, round and reactive pupils present Neck/C-Spine: COMMON NORMALS: full ROM, supple and no JVD Lymph: LYMPHATIC: no lymphadenopathy noted Chest: COMMONS NORMALS: normal inspection of the chest and normal palpation of entire chest wall Resp: COMMON NORMALS: normal respiratory effort, No retractions and clear to auscultation bilaterally EFFORT & INSPECTION: Yes able to speak in complete sentences and Yes symmetric chest movement AUSCULTATION: clear to auscultation bilaterally Cardio: COMMON NORMALS: no JVD, regular rate and regular rhythm RATE: regular rate RHYTHM: regular rhythm GI: OTHER: Moderate right lateral flank pain appreciated to palpation on exam with radiation to the right upper and right medial abdomen otherwise soft nontender nondistended Extremity: COMMON NORMALS: normal to inspection and full ROM Neuro: COMMON NORMALS: patient oriented x3, CN's II-XII intact bilaterally, moves all extremities and no focal motor deficits Psych: COMMON NORMALS: mental status grossly normal, Normal thought process present, cooperative and normal affect THOUGHT PROCESS: Normal thought process present Skin: COMMON NORMALS: no rashes or lesions noted GENERAL SKIN EXAM: no rashes or lesions noted Course Vital Signs: Vital signs: Vital Signs Temperature 98.2 F 10/13/22 15:49 Pulse Rate 59 L 10/13/22 15:49 Respiratory Rate 16 10/13/22 18:16 Blood Pressure 171/84 10/13/22 15:49 Pulse Oximetry 99 10/13/22 15:49 Oxygen Delivery Me thod Room Air 10/13/22 15:49 MDM - Back Pain/Injury Medical Decision Making Due to patient's symptoms and condition IV will be established basic lab work and imaging will be obtained we will continue to follow. Patient was found to calculus in the right ureter at the level L4-L5 disc space with mild right-sided hydronephrosis patient discharged on this medications for his symptoms advised further follow-up with primary care in 3 to 5 days patient discharged with pain meds and nausea was advised to return the interim if any of his symptoms persist or worse. Labs 10/13/22 16:46 10/13/22 16:46 Radiology Impressions Abdomen/Pelvis CT 10/13/22 16:31 IMPRESSION: 1. There is [id number] right hydronephrosis with a 4 mm calculus right ureter at the level of the L4-L5 disc space. 2. Although the majority of the colon is collapsed, the wall of the distal transverse, descending and sigmoid colon appears diffusely thickened and there is some very subtle fat stranding concerning the patient may have mild colitis. Please correlate clinically. COMMENTS: Consistent with the [place] [employer]'s Incidental Findings Committee white paper (J Am Romy Radiol 2018): Any incidental renal lesion less than 1 cm or classified as too small to characterize, or any incidental cystic renal lesion characterized as simple-appearing, is likely benign. No follow-up imaging is recommended for these lesions per consensus recommendations based on imaging criteria. Laboratory Results WBC 13.3 10^3/uL (4.0-10.0) H 10/13/22 16:46 RBC 5.53 10^6/uL (4.1-5.3) H 10/13/22 16:46 Hgb 16.9 g/dL (11.7-16.6) H 10/13/22 16:46 Hct 51.8 % (42.0-52.0) 10/13/22 16:46 MCV 93.7 fl (80-94) 10/13/22 16:46 MCH 30.6 pg (28.0-34.0) 10/13/22 16:46 MCHC 32.6 g/dL (30.0-36.0) 10/13/22 16:46 RDW 13.5 % (12.1-15.1) 10/13/22 16:46 Plt Count 316 10^3/cmm (130-400) 10/13/22 16:46 MPV 9.4 fL (7.4-10.4) 10/13/22 16:46 Neut % (Auto) 78.6 % 10/13/22 16:46 Lymph % (Auto) 12.9 % 10/13/22 16:46 [place] % (Auto) 5.3 % 10/13/22 16:46 Eos % (Auto) 1.9 % 10/13/22 16:46 Baso % (Auto) 0.8 % 10/13/22 16:46 Neut # (Auto) 10.45 10^3/uL (1.8-7.7) H 10/13/22 16:46 Lymph # (Auto) 1.7 10^3/uL (0.8-4.8) 10/13/22 16:46 [place] # (Auto) 0.7 10^3/uL (0.2-0.9) 10/13/22 16:46 Eos # (Auto) 0.3 10^3/uL (0.0-0.8) 10/13/22 16:46 Baso # (Auto) 0.1 10^3/uL (0.0-0.1) 10/13/22 16:46 Nucleated RBC % (auto) 0 % 10/13/22 16:46 Nucleated RBCs # 0.0 /100WBC 10/13/22 16:46 Sodium 140 mmol/L (136-145) 10/13/22 16:46 Potassium 4.4 mmol/L (3.5-5.1) 10/13/22 16:46 Chloride 103 mmol/L (98-107) 10/13/22 16:46 Carbon Dioxide 26 mmol/L (22-29) 10/13/22 16:46 Anion Gap 15.4 (5-19) 10/13/22 16:46 BUN 18 mg/dL (8-23) 10/13/22 16:46 Creatinine 1.0 mg/dL (0.7-1.2) 10/13/22 16:46 GFR Calculation 74.5 mL/min (90-130) L 10/13/22 16:46 Glucose 107 mg/dL (65-115) 10/13/22 16:46 Calculated Osmolality 292 mOsm/kg (285-295) 10/13/22 16:46 Calcium 9.7 mg/dL (8.5-10.5) 10/13/22 16:46 Total Bilirubin 1.0 mg/dL (0.15-1.2) 10/13/22 16:46 AST 27 U/L (0-40) 10/13/22 16:46 ALT 29 U/L (0-41) 10/13/22 16:46 Alkaline Phosphatase 118 U/L (40-130) 10/13/22 16:46 C-Reactive Protein 3.0 mg/L (0.0-4.9) 10/13/22 16:46 Total Protein 7.4 g/dL (6.6-8.7) 10/13/22 16:46 Albumin 4.9 g/dL (3.5-5.2) 10/13/22 16:46 Globulin 2.5 g/dL (1.3-4.6) 10/13/22 16:46 Lipase 27 U/L (13-60) 10/13/22 16:46 Urine Color Dark yellow (Yellow) 10/13/22 18:07 Urine Appearance Cloudy (CLEAR) A 10/13/22 18:07 Urine pH 5 (5-7) 10/13/22 18:07 Ur Specific [place] 1.020 (1.005-1.030) 10/13/22 18:07 Urine Protein 1+ (Negative) H 10/13/22 18:07 Urine Glucose (UA) Norm (Normal) 10/13/22 18:07 Urine Ketones Negative (Negative) 10/13/22 18:07 Urine Blood 3+ (Negative) H 10/13/22 18:07 Urine Nitrate Negative (Negative) 10/13/22 18:07 Urine Bilirubin Neg (Negative) 10/13/22 18:07 Urine Urobilinogen Norm mg/dL (Negative) 10/13/22 18:07 Ur Leukocyte Esterase 1+ (Negative) H 10/13/22 18:07 Urine RBC 50-80 /hpf (0-2) H 10/13/22 18:07 Urine WBC 5-10 /hpf (0-5) H 10/13/22 18:07 Ur Squamous Epith Cells 0-4 /hpf (0-5) H 10/13/22 18:07 Amorphous Sediment Not Reportable 10/13/22 18:07 Urine Bacteria 1+ /hpf (NONE) H 10/13/22 18:07 Urine Mucus 1+ /hpf 10/13/22 18:07 Urine Yeast 1+ /hpf H 10/13/22 18:07 Discharge Plan Discharge Patient Disposition: Home Clinical Impression: Renal colic on left side, Kidney stone on right side Condition: Stable Prescriptions: New hydrocodone-acetaminophen 5-325 mg tablet 1 tab PO Q6H PRN (Reason: pain) Qty: 20 0RF ondansetron 4 mg tablet,disintegrating 4 mg PO Q8H PRN (Reason: nausea and vomiting) Qty: 20 0RF Flomax 0.4 mg capsule 0.4 mg PO DAILY Qty: 7 0RF No Action tamsulosin 0.4 mg capsule 0.4 mg PO DAILY Qty: 30 2RF Percocet 5-325 mg tablet 1 tab PO Q8H Qty: 15 0RF Discharge Orders: Discharge ED (Routine); Ordered 10/13/22 Ordered By: Zak Cope Referrals: Curtis Cobb MD [Primary Care Provider] - 4-7 days Discharge Diet: Advance as tolerated Discharge Activity: Increase activity as tolerated Patient Instructions: Kidney Stones (ED), How to Strain Your Urine (ED), Abdo niall Pain (ED), Opioid Safety Activity Restrictions/Additional Instructions: Please further follow-up with your primary care doctor in 3 to 5 days, drink lots of water please take medication as prescribed for your breakthrough symptoms and please strain your urine in which please return the interim if any of your symptoms persist or worse. 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
[2022-10-13 16:41] VITALS: RESP 16
[2022-10-13] MEDS: morphine 4 mg/mL SDV 1 mL IVP ×2 (16:41→18:16)
[2022-10-13] MEDS: ketorolac 30 mg/mL INJ IVP (16:41)
[2022-10-13] MEDS: ondansetron 2 mg/ML SDV 2 mL 4 MG IVP (16:42)
[2022-10-13] MEDS: sodium chloride 0.9% 1,000 ML 999 ML IV (16:42)
[2022-10-13 17:04] LABS: Basophils # 0.1 10^3/uL (0.0-0.1); Basophils % 0.8 %; Eosinophils # 0.3 10^3/uL (0.0-0.8); Eosinophils % 1.9 %; Hematocrit 51.8 % (42.0-52.0); Hemoglobin 16.9 g/dL (11.7-16.6); Lymphocytes # 1.7 10^3/uL (0.8-4.8); Lymphocytes % 12.9 %; Mean Corpuscular HGB Conc 32.6 g/dL (30.0-36.0); Mean Corpuscular Hemoglobin 30.6 pg (28.0-34.0); Mean Corpuscular Volume 93.7 fl (80-94); Mean Platelet Volume 9.4 fL (7.4-10.4); Monocytes # 0.7 10^3/uL (0.2-0.9); Monocytes % 5.3 %; Neutrophils # 10.45 10^3/uL (1.8-7.7); Neutrophils % 78.6 %; Nucleated Red Blood Cells % 0 %; Platelet Count 316 10^3/cmm (130-400); Red Blood Count 5.53 10^6/uL (4.1-5.3); Red Cell Distribution Width 13.5 % (12.1-15.1); White Blood Count 13.3 10^3/uL (4.0-10.0)
[2022-10-13 17:28] LABS: Alanine Aminotransferase 29 U/L (0-41); Albumin Level 4.9 g/dL (3.5-5.2); Alkaline Phosphatase 118 U/L (40-130); Anion Gap 15.4 (5-19); Aspartate Amino Transferase 27 U/L (0-40); Blood Urea Nitrogen 18 mg/dL (8-23); Calcium 9.7 mg/dL (8.5-10.5); Carbon Dioxide 26 mmol/L (22-29); Chloride 103 mmol/L (98-107); Globulin 2.5 g/dL (1.3-4.6); Glomerular Filtration Rate 74.5 mL/min (90-130); Glucose 107 mg/dL (65-115); Lipase 27 U/L (13-60); Osmolality Calculated 292 mOsm/kg (285-295); Potassium 4.4 mmol/L (3.5-5.1); Sodium 140 mmol/L (136-145); Total Protein 7.4 g/dL (6.6-8.7)
[2022-10-13] MEDS: tamsulosin 0.4 mg Capsule PO (18:15)
[2022-10-13 18:16] VITALS: RESP 16
[2022-10-13 18:25] LABS: Add Urine Microscopic? YES; Bilirubin Urine Neg (Negative); Blood Urine 3+ (Negative); Glucose Urine UA Norm (Normal); Ketones Urine Negative (Negative); Leukocyte Esterase Urine 1+ (Negative); Nitrate Urine Negative (Negative); Protein Urine 1+ (Negative); Urine Appearance Cloudy (CLEAR); Urine Color Dark Yellow (Yellow); Urobilinogen Urine Norm (Negative); pH Urine 5 (5-7)
[2022-10-13 18:29] LABS: Bacteria Urine 1+ /hpf; Mucus Urine 1+ /hpf; RBC Urine 50-80 /hpf (0-2); Squamous Epithelial Cell Urine 0-4 /hpf (0-5)
[2022-10-13 18:30] LABS: Add Urine Culture? Yes
[2022-10-13 19:14] VITALS: BP 171/84; PULSE 59; RESP 16; TEMP 36.8; O2SAT 99
== END 2022-10-13 19:15 | disposition home or self-care (01) ==
PROVIDERS: Physician Assistant; Emergency Provider Emergency Medicine; PCP Family Medicine
DX: N13.2 Hydronephrosis with renal and ureteral calculous obstruction (principal); Z87.891 Personal history of nicotine dependence; Z87.442 Personal history of urinary calculi
CPT/HCPCS: 74176; 80053; 81001; 83690; 85025; 86140; 87086; 96361; 96374; 96375; 96376; 99285; J1885; J2270; J2405; J7030

== ENCOUNTER 2023-07-19 07:43 | Outpatient (CLI) | payer MEDICARE, OTHER, SELFPAY ==
--- NOTE | 2023-07-19 07:52 | CT_ITS ---
WS: [id number] CTA HEAD AND NECK TECHNIQUE: Contrast enhanced CTA of the head and neck with coronal and sagittal reformatted images an d maximum intensity projection (MIP) images. NASCET criteria utilized. CLINICAL INFORMATION: ACUTE ONSET ATAXIA COMPARISON: None. DLP: 1251.[address] scans at [facility] use at least one of these dose optimization techniques: automated e xposure control; mA and/or kV adjustment per patient size (includes targeted exams where dose is matc hed to clinical indication); or iterative reconstruction. FINDINGS: No evidence intracranial hemorrhage or mass effect. Ventricular system and basilar cisterns are paten t. Intracranial vascular calcification. Mild small vessel changes. Moderate parenchymal volume loss. Lung apices are well aerated. Mastoid air cells are well aerated. Polyploid mucosal thickening in the maxillary sinuses LEFT great er than RIGHT. Small retention cyst or polyp RIGHT frontoethmoidal recess. A few small retention cyst or polyps RIGHT maxillary sinus largest measuring 12 mm. Normal posterior nasopharynx. Posterior fos sa appears normal. RIGHT: RIGHT common carotid artery is patent. No significant RIGHT ICA stenosis. RIGHT ICA is patent to the skull base. LEFT: LEFT common carotid artery is patent. No significant LEFT ICA stenosis. LEFT ICA is patent to t he skull base. LEFT dominant vertebral artery. Smaller but patent RIGHT vertebral artery. RIGHT vertebral artery par tially ends in PICA. Basilar artery is patent. Normal vascularity to the [employer] territory bilaterally. P atent posterior communicating arteries bilaterally. Normal vascularity to the ANNE territory. Normal vascularity to the MCA territories bilaterally. No ev idence of high-grade proximal stenosis or aneurysm. Prominent lobulated filling defect in the RIGHT transverse sinus compatible with arachnoid granulatio ns with CSF attenuation. Dural venous sinuses appear patent. IMPRESSION: 1. No significant cervical ICA stenosis bilaterally. No significant atheromatous disease in the lowe tid vessels. 2. No flow-limiting intracranial stenosis. 3. LEFT dominant vertebral artery. Smaller but patent RIGHT vertebral artery partially ends in PICA. Basilar artery is patent. 4. Patent posterior communicating arteries bilaterally. 5. Mild small vessel changes with moderate parenchymal volume loss. 6. Mild polypoid mucosal thickening in the paranasal sinuses described above. 7. Prominent lobulated filling defect in the RIGHT transverse sinus compatible with arachnoid granul ations with CSF attenuation
[2023-07-19 08:49] LABS: Blood Urea Nitrogen 27 mg/dL (8-23); Glomerular Filtration Rate 60.2 mL/min (90-130)
[2023-07-19] MEDS: iohexol 350 mg/mL 500 mL Btl (per mL) IV (08:50)
== END 2023-07-19 07:44 | disposition home or self-care (01) ==
LOC: RAD 07:47
PROVIDERS: PCP Family Medicine; Visit Provider Family Medicine
DX: R27.8 Other lack of coordination (principal); I65.23 Occlusion and stenosis of bilateral carotid arteries
CPT/HCPCS: 70496; 70498; 82565; 84520; Q9967

== ENCOUNTER 2023-08-15 08:33 | Outpatient (CLI) | payer MEDICARE, OTHER, SELFPAY ==
--- NOTE | 2023-08-15 08:44 | MR_ITS ---
WS: [id number] MRI BRAIN WITH HIGH-RESOLUTION IMAGING THROUGH THE INTERNAL AUDITORY CANALS WITHOUT AND WITH CONTRAST HISTORY: DIZZINESS AND GIDDINESS COMPARISON: None available. TECHNIQUE: Multiplanar, multisequence imaging is performed through the brain. Additional 3 mm imaging performed in multiple planes through the internal auditory canal. Postcontrast imaging with 11 ml's of MultiHance. No acute intracranial hemorrhage, midline shift, edema or mass effect. Mild atrophy. No prior infarct. Ventricles and extra-axial spaces are normal. No inferior displacement of cerebellar tonsils. Clivus and pituitary gland are normal. Internal and external auditory canals: Unremarkable. Cranial nerves VII and VIII complexes: Unremarkable. No enhancement or mass. Cerebellopontine angles: Normal. Paranasal sinuses: Complex mucous retention cysts in the maxillary sinuses. No air-fluid levels. Mastoid air cells: Normal. Calvarium and scalp: Normal. Visualized [place] and dural venous sinuses demonstrate no abnormality. IMPRESSION: 1. No signal abnormality or enhancement along the internal auditory canals or cerebellopontine angle s. 2. No significant mastoid air cell disease. 3. No prior infarct. 4. Mild atrophy and small vessel ischemic disease.
[2023-08-15] MEDS: gadobenate dimeglumine 20 mL vial IV (09:23)
== END 2023-08-15 08:34 | disposition home or self-care (01) ==
LOC: RAD 08:36
PROVIDERS: PCP Family Medicine; Visit Provider Specialist
DX: R42 Dizziness and giddiness (principal); I67.82 Cerebral ischemia; G31.9 Degenerative disease of nervous system, unspecified
CPT/HCPCS: 70553; A9577

== ENCOUNTER → 2024-10-01 08:19 | Outpatient (BNVA) | payer MEDICARE, SELFPAY | PROVIDERS: PCP Family Medicine; Visit Provider Orthopaedic Surgery | DX: M25.511 Pain in right shoulder (principal) | CPT/HCPCS: 99204 ==

== ENCOUNTER 2024-10-05 09:28 | Outpatient (CLI) | payer MEDICARE, SELFPAY ==
--- NOTE | 2024-10-05 09:30 | MR_ITS ---
WS: [id number] MRI RIGHT SHOULDER NONCONTRAST TECHNIQUE: Sagittal T2, coronal T1, T2 and proton density imaging. Axial gradient PDE imaging. CLINICAL INFORMATION: Right shoulder pain COMPARISON: None. FINDINGS: Advanced degenerative arthritis AC joint with marked narrowing of the subacromial space. Severe narrowing of the subacromial space with impingement on the rotator cuff. Subacromial spurring. Subacromial subdeltoid fluid. High-grade tear of the supraspinatus with tendon retraction measuring approximately 2.0 cm from the insertion. Infraspinatus appears intact with tendinopathy and a few small intrasubstance tears. Chronic thinning of the infraspinatus. Calcific tendinitis distally in the infraspinatus. Normal teres minor. Tendinopathy subscapularis tendon. Biceps tendon appears intact within the bicipital groove. Advanced degenerative narrowing of the glenohumeral articulation. Labrum appears grossly intact. Normal bone marrow signal in the humeral head and glenoid. MR/MR shoulder RT wo con* [id number] IMPRESSION: 1. Advanced degenerative arthritis AC joint with narrowing of the subacromial space and impingement on the supraspinatus/infraspinatus 2. High-grade tear of the supraspinatus with tendon retraction measuring 2.0 c m. 3. Chronic thinning of the infraspinatus with tendinopathy and one or 2 small intrasubstance tears. 4. Biceps tendon appears intact within the bicipital groove. 5. Advanced joint space narrowing of the glenohumeral articulation. 6. Intra-articular biceps tendon appears intact.
== END 2024-10-05 09:29 | disposition home or self-care (01) ==
LOC: RAD 09:30
PROVIDERS: PCP Family Medicine; Visit Provider Orthopaedic Surgery
DX: M19.011 Primary osteoarthritis, right shoulder (principal); M75.101 Unspecified rotator cuff tear or rupture of right shoulder, not specified as traumatic; R93.6 Abnormal findings on diagnostic imaging of limbs; M67.813 Other specified disorders of tendon, right shoulder; M75.91 Shoulder lesion, unspecified, right shoulder; S46.811A Strain of other muscles, fascia and tendons at shoulder and upper arm level, right arm, initial encounter; X58.XXXA Exposure to other specified factors, initial encounter; M75.31 Calcific tendinitis of right shoulder
CPT/HCPCS: 73221

== ENCOUNTER → 2024-10-08 13:18 | Outpatient (BNVA) | payer MEDICARE, SELFPAY | PROVIDERS: PCP Family Medicine; Visit Provider Orthopaedic Surgery | DX: M75.101 Unspecified rotator cuff tear or rupture of right shoulder, not specified as traumatic (principal) | CPT/HCPCS: 99213 ==

== ENCOUNTER 2024-11-11 06:10 | Day surgery (SDC) | payer MEDICARE, SELFPAY ==
[2024-11-11] VITALS (11 sets, daily range): BP systolic 107–136; BP diastolic 61–87; PULSE 66–81; RESP 10–18; TEMP 36.1–36.5; O2SAT 9–100; BMI 25.1
--- NOTE | 2024-11-11 06:27 | P.ANESASSM_ITS ---
Pre-Anesthetic Assessment Height/Weight: Height 5 ft 11 in Weight 180 lb Temp Pulse Resp BP Pulse Ox O2 Del Method 97.1 F L 69 18 136/87 96 Room Air 11/11/24 06:22 11/11/24 06:22 11/11/24 06:22 11/11/24 06:22 11/11/24 06:22 11/11/24 06:22 Preop Diagnosis: Rotator cuff tear Operation Date: 11/11/24 07:00 Proposed Procedures p right shoulder diagnostic and surgical arthroscopy with rotator cuff repair(Right) - Alexander Lomeli MD s Rotator Cuff Repair - Arthroscopy(Right) - Alexander Lomeli MD Was Beta Miguel taken within 24 hours: N/A Was Clonidine taken within 24 hours: N/A Social No alcohol and No tobacco Exam alert, oriented x 3, clear to auscultation bilaterally and regular rate & rhythm Airway Submandibular: within normal limits Cervical ROM: within normal limits Mallampati: Class II Dentition: full Anesthetic Plan ASA status: 1 Anesthesia: General Other: No prior issues with anesthesia NPO since yesterday evening Patient denies any cardiac or pulmonary issues METs greater than 4 Plan for general anesthesia with preop nerve block Medications/Allergies Home Medications ?Medication ?Instructions ?Recorded ?Confirmed ?Last Taken ?Type Aleve 220 mg PO BID PRN Pain 11/1011/10/24 11/09/24 History Allergies Allergy/AdvReac Type Severity Reaction Status Date / Time No Known Allergies Allergy Verified 11/11/24 06:32 [facility] Anesthesia Medical History Duodenal ulcer History of nephrolithiasis Gastric ulcer Surgical History Status post laparotomy For perforated duodenal ulcer History of colonoscopy Family History Mother Cancer Melanoma Denies family history of Anesthesia complication Bleeding disorder Social History Smoking and tobacco/nicotine status: never used tobacco/nicotine Alcohol intake: never Substance/Drug Use: never Data Anesthesia Cardiac Studies: Echocardiogram Ultrasound 04/30/20
--- NOTE | 2024-11-11 06:57 | SUR.PREOP ---
0650-dr Armstrong performed an interscalene block to right shoulder using 30 ml 0.5% ropivicaine and 4 mg decadron
--- NOTE | 2024-11-11 06:57 | W.PM.OPSUD ---
Surgery/Procedure H&P Update DATE OF PROCEDURE: November 11, 2024 DATE H&P PERFORMED: 10/08/24 H&P UPDATE INFORMATION: I have reviewed H&P completed within last 30 days, I have examined patient prior to procedure and No changes to prior documentation PREOP DIAGNOSIS: Right rotator cuff tear PRIMARY INDICATION FOR PROCEDURE: Rotator cuff tear PLANNED PROCEDURE: Operation Date: 11/11/24 07:00 Proposed Procedures p right shoulder diagnostic and surgical arthroscopy with rotator cuff repair(Right) - Alexander Lomeli MD s Rotator Cuff Repair - Arthroscopy(Right) - Alexander Lomeli MD
[2024-11-11] MEDS: ceFAZolin 2,000 mg SDV 2000 MG IVP (07:00)
[2024-11-11] MEDS: sodium chloride 0.9% 1,000 ML 30 ML IV (07:02)
--- NOTE | 2024-11-11 07:02 | ANES.PROC ---
Anesthesia Procedures Procedure/Date: 11/11/24 Nerve Block ^: Nerve Block 1: Main Anesthesia: other (Fentanyl 100 mcg) Time Out Performed: Yes Consent: requested by attending/covering physician and from patient Nerve block location: interscalene Anesthesia monitors applied: pulse oximetry, EKG, BP cuff and oxygen Nerve block position: supine Anesthetic Used: ropivicaine 0.5% Amount of anesthesia used (mL): 30 Ultrasound used to: recognize landmarks Nerve Stimulator Used?: Yes Interscalene/Femoral BLK: other needle (pjunk 4inch) Injection: neg aspiration of heme Patient Tolerated Procedure: well Complications: none Additional Comments: Decadron 4 mg added to block
--- NOTE | 2024-11-11 08:25 | P.OP_ITS ---
Operative Report Date of procedure: November 11, 2024 Surgeon: Alexander Lomeli MD Procedure: Preoperative diagnosis: Internal derangement right shoulder, torn rotator cuff, impingement of the acromion, possible degenerative tearing anterior labrum Postop diagnosis: Torn right rotator cuff, degenerative tearing of the anterior and superior labrum, acromial impingement Procedure: Diagnostic right shoulder arthroscopy with debridement of labrum and rotator cuff. Mini open rotator cuff repair as well as acromioplasty Surgeon: Alxeander Lomeli MD Alarm Signal Operator: ELISA Roberts's assistance was necessary for positioning the patient, assistance during procedure, wound closure, dressing placement, transfer the patient back to the PACU EBL: 20 cc Indications: Kennedy is a 68-year-old male who was seen in the orthope dic clinics for debilitating right shoulder pain. He is having difficulty raising his arm and performing his activities of daily living. He is right-hand dominant and having difficulty with doing his work. Clinical exam was consistent with possible rotator cuff tear. Subsequent MRI confirmed this. Therefore at this time the patient was offered a diagnostic shoulder arthroscopy with all indicated procedures. All risk, benefits, treatment alternatives were discussed with him. All aspects of the surgery were discussed as to what I expected to do and how I would repair his shoulder. All of his questions were answered. He was willing to proceed with surgical intervention at this time Procedure: After obtaining the consent patient had preoperative skin block administered in preop holding. Patient then taken to the operating room and placed on the operative table supine position and general anesthetic was administered. After good anesthesia had been achieved, the patient was placed in the beachchair position. Patient was padded and secured to the bed well. Right shoulder and arm were prepped and draped usual fashion. After surgical timeout standard posterior portals made #11 blade and camera cannulas placed into the glenohumeral joint line. Anterior working portal was also placed just inferior to the clavicle to the anterior glenohumeral joint line. Probing of the anterior labrum with a small nerve hook demonstrated degenerative tearing from approximately about the 5 o'clock position all the way up to about the 11 o'clock position. Mechanical shaver was then used to debride the labrum superiorly and anteriorly down to stable cartilaginous space. Further evaluation found that there was a tea between the junction of the supraspinatus and subscapularis. This was debrided mechanical shaver also. At this point arthroscopy was discontinued and a small incision was made over the anterior lateral aspect of the acromion. Sharp dissection taken down to subcutaneous tissues electrocautery used for hemostasis. Electrocautery was used to remove the deltoid from the anterior acromion exposing a very sharp edge impinging upon the rotator cuff. Microsagittal saw was then used to do an acromioplasty at this time and decompressed the shoulder. Bone was removed the rongeur. Further evaluation now found that there is a split and retraction of the rotator cuff at the level of the supraspinatus tendon just posterior to the bicipital groove. Edges of the tear were freshened with #15 blade. Adhesions were removed with digital sweeping of the subacromial space. A total of three 2.9 mm juggernaut's were placed in the equal distance along the course of the tear. Each of these were double armed. Subsequently horizontal mattress sutures were used to repair the rotator cuff back down to the humerus. Once good fixation had been achieved shoulders posterior and found to be stable. No other abnormalities noted. Areas washed with copious amounts of sterile irrigation. Deltoid was reapproximated over the superior aspect of the acromion with 0 Vicryl [id number] sutures. Subcutaneous tissue reapproximated 0 Vicryl interrupted sutures. Skin was closed with running 3-0 Prolene suture. Wounds were cleaned and dried dressed with Xeroform gauze, sterile gauze dressing, ABD. Patient was placed abduction pillow and sling. Patient was awakened and transferred to the cover room stable condition
[2024-11-11] MEDS: ondansetron 2 mg/ML SDV 2 mL 4 MG IVP (09:20)
[2024-11-11] MEDS: HYDROcodone-acetaminophen 5-325 mg Tablet 1 TAB PO (09:25)
--- NOTE | 2024-11-11 10:05 | ANE.PACU2 ---
Inpatient post-anesthesia follow up: Airway intact: Yes Vital signs: Temperature 97.7 F Pulse Rate 68 Respiratory Rate 17 Blood Pressure 128/73 Pulse Oximetry 95 Oxygen Delivery Me thod Room Air Oxygen Flow Rate 6 Fraction of Inspir ed Oxygen Hydration adequate: Yes Nausea and vomiting: No Pain level: 1 Mental status: Baseline
== END 2024-11-11 10:05 | disposition home or self-care (01) ==
PROVIDERS: PCP Family Medicine; Visit Provider Orthopaedic Surgery
PROC: (CPT 29805; principal; 2024-11-11 07:00)
DX: M75.101 Unspecified rotator cuff tear or rupture of right shoulder, not specified as traumatic (principal); M75.41 Impingement syndrome of right shoulder; S43.491A Other sprain of right shoulder joint, initial encounter; X58.XXXA Exposure to other specified factors, initial encounter
CPT/HCPCS: 23412; 29822; 23130; C1713; J0690; J1100; J2405; J2704; J3010; J3490; J7030; J9999

== ENCOUNTER → 2024-11-23 08:02 | Outpatient (BNVA) | payer MEDICARE, SELFPAY | PROVIDERS: PCP Family Medicine; Visit Provider Orthopaedic Surgery | DX: Z98.890 Other specified postprocedural states (principal) | CPT/HCPCS: 99024 ==

== ENCOUNTER → 2024-12-07 09:17 | Outpatient (BNVA) | payer MEDICARE, SELFPAY | PROVIDERS: PCP Family Medicine; Visit Provider Orthopaedic Surgery | DX: Z98.890 Other specified postprocedural states (principal) | CPT/HCPCS: 99024 ==

== ENCOUNTER 2024-12-17 14:56 | Outpatient (RCR) | payer MEDICARE, SELFPAY | END 2025-01-07 23:59 | disposition home or self-care (01) | LOC: SPT 14:56 | PROVIDERS: Visit Provider Orthopaedic Surgery | DX: Z98.890 Other specified postprocedural states (principal) | CPT/HCPCS: 97110; 97161 ==

== ENCOUNTER → 2025-01-04 09:27 | Outpatient (BNVA) | payer MEDICARE, SELFPAY | PROVIDERS: PCP Family Medicine; Visit Provider Orthopaedic Surgery | DX: Z98.890 Other specified postprocedural states (principal) | CPT/HCPCS: 99024 ==

== ENCOUNTER 2025-01-10 19:13 | Emergency (ER) | payer MEDICARE, SELFPAY ==
--- OUTSIDE RECORDS SUMMARY | 2025-01-10 19:18 | XMS_ITS | Clinical Summary ---
Author Organization 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 Active cetirizine (ZyrTEC) 10 mg tablet Take 10 mg by mouth daily. Active naproxen sodium (ALEVE) 220 mg Tablet Take 440 mg by mouth 2 times daily. Active ibuprofen (MOTRIN) 200 mg tablet Take 400 mg by mouth every 6 hours as needed for Pain, Mild. Active HYDROcodone-nguyen taminophen (NORCO) 7.5-325 mg TabletIndicatio ns:Kidney stone Take 1 Tablet by mouth every 8 hours as needed for Pain, Moderate. Max Daily Amount: 3 Tablets 20 Tablet 01/21/2024 7:00 PM CDT 01/21/2024 Active Active Problems No known active problems Encounters Date Type Department Care Team Description 11/25/2024 External Device Data [facility] ABSTRACTION Provider, Abstract 11/24/2024 External Device Data [facility] Provider, Abstract 11/24/2024 External Device Data [facility]STRA[facility] Provider, Abstract from Last 3 Months Immunizations Immunization Administration Dates Next Due Influenza Seasonal Unspecifi ed Formulation IM 03/31/2017,05/23/2015,04/26/2014 Social History Tobacco Use Types Packs/Day Years Used Date Smoking Tobacco: Former Cigarettes Tobacco Cessation:Counseling Given: No Alcohol Use Standard Drinks/Week Comments Not Currently 0 (1 standard drink = 0.6 oz pur e alcohol) Sex and Gender Information Value Date Recorded Sex Assigned at Male 03/11/2024 6:33 PM CDT 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 Gender Identity Not on file Sexual Orientation Not on file Last Filed Vital Signs Vital Sign Reading Time Taken Comments Blood Pressure 152/79 01/21/2024 6:15 PM CDT Pulse 50 01/21/2024 6:15 PM CDT Temperature 35.7 C (96.2 F) 01/21/2024 5:42 PM CDT Respiratory Rate 16 01/21/2024 6:15 PM CDT Oxygen Saturation 95% 01/21/2024 6:15 PM CDT Inhaled Oxygen Concentration - - Weight 84 kg (185 lb 3 oz) 01/21/2024 11:39 AM C DT Height 179.1 cm (5' 10.5 ) 01/21/2024 11:39 AM C DT Body Mass Index 26.2 01/21/2024 11:39 AM CDT Plan of Treatment Health Maintenance Due Date Last Done Comments Pre-Diabetes and Diabetes Screening 1955 DTAP/TDAP/TD VACCINES (1 - Tdap) 1973 COLORECTAL SCREENING 12/11/1999 Colorectal Cancer Screening 12/11/1999 FIT-DNA Q 3 years 12/11/1999 FIT/FOBT Q 1 year 12/11/1999 Flex Sig/CT Colonography Q 5 years 12/11/1999 PNEUMOCOCCAL VACCINE 50+ YEA RS (1 of 1 - PCV) 2004 ZOSTER VACCINE (1 of 2) 2004 Abdominal Aortic Aneurysm (A AA) Screening 12/11/2019 COVID-19 Vaccine (4 - season) 2024 06/13/2021, 09/28/2020, 08/30/2020 INFLUENZA VACCINE (#1) 2025 7, 05/23/2015, 04/26/2014 RSV VACCINE (60+ or ) (1 - 1-dose 75+ series) 2029 Medical Devices Implanted Type [employer] Device Identifier Shelf Expiration Date Model / Serial / Lot Stent Contour [id number] - [id number] Implanted:Qty: 1 on 01/21/2024 by Peggy Bobo MD at Stent Right: [employer] [id number] 05/26/2026 [id number] 40 / / [id number] Insurance MEDICARE PART A AND B RX [facility] Medicare Part D
[2025-01-10 19:52] VITALS: BP 164/69; PULSE 92; RESP 23; TEMP 36.9; O2SAT 95; BMI 27.6
--- NOTE | 2025-01-10 19:59 | ECG_ITS ---
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
[2025-01-10 20:06] VITALS: BP 150/86; O2SAT 95
--- NOTE | 2025-01-10 20:12 | XRR_ITS ---
PROCEDURE INFORMATION: Exam: XR Chest Exam date and time: 01/10/2025 8:46 PM Age: 69 years old Clinical indication: Shortness of breath; Additional info: Sob/cough TECHNIQUE: Imaging protocol: Radiologic exam of the chest. Views: 1 view. COMPARISON: CR XR chest 1V portable [id number] 05/03/2020 6:25 AM FINDINGS: Lungs: No pulmonary consolidation. Pleural spaces: No pleural effusion or pneumothorax. Heart/Mediastinum: Heart size is within normal limits. Diaphragm: Mild elevation of the left hemidiaphragm. Bones/joints: No acute osseous abnormalities are seen. XR/XR chest 1V portable [id number] IMPRESSION: No acute cardiopulmonary disease.
--- NOTE | 2025-01-10 20:18 | ED_ITS ---
HPI - SOB/Dyspnea 2 General: Chief Complaint: Shortness of Breath/Dyspnea Stated Complaint: cough, hurts lungs to breathe Time Seen by Provider: 01/10/25 19:15 Source: patient Mode of arrival: ambulatory Limitations: no limitations History of Present Illness: HPI Narrative: Patient is a 69-year-old male who presents the emergency department planing of a cough for the past 2 days. Also notes that today he had sudden onset of shortness of breath and pain with breathing. Symptoms were preceded by mowing his yard he started to feel stuffy and that he has a history of feeling similar in the past where he was diagnosed with either pneumonia or bronchitis. He uses an inhaler occasionally, no relief since his symptoms began. Reportedly was coughing up brownish sputum. No pertinent past medical history such as COPD or heart disease. No reported sick contact exposure. No fevers, nausea, vomiting, or diarrhea. He is noting some chest pain at this time but states this is primary pleuritic in nature. MD elicited complaint: shortness of breath, cough, pain with inspiration and chest pain Onset (ago): day(s) Timing: constant Severity: moderate Associated symptoms: Reports chest pain; Deny abdominal pain, fever(s), lightheadedness, nausea, palpitations or vomiting Related Data Home Medications ?Medication ?Instructions ?Recorded ?Confirmed Aleve 220 mg PO BID PRN Pain 11/1001/04/25 Previous Rx's ?Medication ?Instructions ?Recorded hydrocodone 5 mg-acetaminophen 325 1 tab PO Q6H PRN pa in #30 tabs 11/11/24 mg tablet albuterol sulfate 90 mcg/actuation 1 inh inhalation Q6 H PRN shortness 01/10/25 aerosol inhaler of breath or wheezing #6.7 g leah azithromycin 500 mg tablet 500 mg PO DAILY 5 days #5 t abs 01/10/25 prednisone 20 mg tablet 60 mg (3 x 20 mg) PO ONCE 5 days 01/10/25 #15 tabs Allergies Allergy/AdvReac Type Severity Reaction Status Date / Time No Known Allergies Allergy Verified 12/07/24 09:29 Review of Systems 2 General: Reports: 10 or more systems reviewed and unremarkable except in HPI and below Const: Denies: fever(s), chills or fatigue Eyes: Denies: change in vision ENMT: Reports: nasal congestion; Denies: throat pain, ear or mastoid pain or nasal discharge Card: Reports: chest pain; Denies: palpitations, swelling of feet/ankles or lightheadedness Resp: Reports: dyspnea, productive cough and pain on inspiration; Denies: wheezing GI: Denies: abdominal pain, nausea, vomiting, diarrhea or constipation : Denies: flank pain, difficulty urinating, dysuria or urinary frequency Musc: Denies: neck pain, back pain or joint pain Skin/Breast: Denies: rash Neuro: Denies: headache(s), numbness in extremities or weakness in extremities PFSH ED 2 PFSH: Medical History Duodenal ulcer History of nephrolithiasis Gastric ulcer Surgical History Status post laparotomy For perforated duodenal ulcer History of colonoscopy Family History Mother Cancer Melanoma Denies family history of Anesthesia complication Bleeding disorder Social History Smoking and tobacco/nicotine status: never used tobacco/nicotine Alcohol intake: never Substance/Drug Use: never Physical Exam 2 Const: COMMON NORMALS: no acute distress, patient oriented x3 and no limitations GENERAL APPEARANCE: cooperative, comfortable and well developed ORIENTATION/CONSCIOUSNESS: Yes awake, Yes oriented to person, Yes oriented to place and Yes oriented to time HENMT: COMMON NORMALS: normocephalic, atraumatic and hearing grossly normal bilaterally HEAD & SCALP: normocephalic and atraumatic Eye: COMMON NORMALS: Equal, round and reactive pupils present, EOMs intact bilaterally and conjunctivae normal CONJUNCTIVA: Yes conjunctivae normal P UPIL: Yes Equal, round and reactive pupils present Neck/C-Spine: COMMON NORMALS: full ROM, supple and no JVD Resp: COMMON NORMALS: normal respiratory effort, No retractions, No use of accessory muscles and clear to auscultation bilaterally EFFORT & INSPECTION: Yes Actively coughing AUSCULTATION: clear to auscultation bilaterally Cardio: COMMON NORMALS: no JVD, regular rate, regular rhythm, No clicks present (Cardio), No murmurs present (Cardio) and No rub (Cardio) RATE: r egular rate RHYTHM: regular rhythm Extremity: COMMON NORMALS: normal to inspection, full ROM and capillary refill normal Neuro: COMMON NORMALS: patient oriented x3, moves all extremities, no focal motor deficits and no sensory deficits noted SENSORIUM/ORIENTATION: Yes oriented to person, Yes oriented to place and Yes oriented to time Psych: COMMON NORMALS: mental status grossly normal and Normal thought process present THOUGHT PROCESS: Normal thought process present Skin: COMMON NORMALS: no rashes or lesions noted GENERAL SKIN EXAM: no rashes or lesions noted Course 2 Vital Signs: Vital signs: Vital Signs Temperature 98.5 F 01/10/25 19:52 Pulse Rate 83 01/10/25 22:10 Respiratory Rate 16 01/10/25 22:10 Blood Pressure 141/86 01/10/25 22:10 Pulse Oximetry 91 01/10/25 22:10 Oxygen Delivery Me thod Room Air 01/10/25 21:12 MDM - SOB/Dyspnea Medical Decision Making Patient presenting with cough and shortness of breath for the past 48 hours, history of similar. No pertinent past history with cardiopulmonary. Active coughing during exam, but lung sounds were unremarkable. Vitals within normal limits, he was not hypoxic and heart rate within normal limits. No acute respiratory distress or adventitious lung sounds on exam. Chest x-ray negative. Blood work was overall unremarkable, this included a negative D-dimer. EKG negative and baseline troponin negative. He was given a breathing treatment, afterwards he felt quite a bit better. Working diagnosis at this time is acute bronchitis with reactive airway disease, due to his history of similar and improvement after DuoNeb therapy. For atypical infectious etiology will provide a Z-Cody, and provide him with prednisone and albuterol to use. This patient is stable for discharge home and he is provided with strict return precautions and follow-up as needed with primary care for general reevaluation. Patient agrees with this plan. He is supposed to go back to work tomorrow following arthroplasty in his shoulder, recommended that he rest and recover for a couple of days and thus is provided with note. Lab Data 01/10/25 20:35 01/10/25 20:35 Labs/Radiology: Radiology Impressions Chest X-Ray 01/10/25 20:12 IMPRESSION: No acute cardiopulmonary disease. Laboratory Results WBC 6.72 10^3/uL (3.29-11.43) 01/10/25 20:35 RBC 4.65 10^6/uL (3.85-5.65) 01/10/25 20:35 Hgb 14.70 g/dL (11.27-16.99) 01/10/25 20:35 Hct 44.1 % (37-53) 01/10/25 20:35 MCV 94.8 fl (82-101) 01/10/25 20:35 MCH 31.6 pg (27-33) 01/10/25 20:35 MCHC 33.3 g/dL (30-55) 01/10/25 20:35 RDW 13.2 % (12.1-15.1) 01/10/25 20:35 Plt Count 270 10^3/cmm (157-399) 01/10/25 20:35 MPV 9.3 fL (7.4-10.4) 01/10/25 20:35 Neut % (Auto) 60.5 % 01/10/25 20:35 Lymph % (Auto) 16.7 % 01/10/25 20:35 [place] % (Auto) 14.9 % 01/10/25 20:35 Eos % (Auto) 6.3 % 01/10/25 20:35 Baso % (Auto) 1.3 % 01/10/25 20:35 Neut # (Auto) 4.07 10^3/uL (1.8-7.7) 01/10/25 20:35 Lymph # (Auto) 1.1 10^3/uL (0.8-4.8) 01/10/25 20:35 [place] # (Auto) 1.0 10^3/uL (0.2-0.9) H 01/10/25 20:35 Eos # (Auto) 0.4 10^3/uL (0.0-0.8) 01/10/25 20:35 Baso # (Auto) 0.1 10^3/uL (0.0-0.1) 01/10/25 20:35 Nucleated RBC % (auto) 0 % 01/10/25 20:35 Nucleated RBCs # 0.0 /100WBC 01/10/25 20:35 D-Dimer 0.41 ug/mLFEU (0-0.59) 01/10/25 20:35 Sodium 143 mmol/L (136-145) 01/10/25 20:35 Potassium 4.0 mmol/L (3.5-5.1) 01/10/25 20:35 Chloride 107 mmol/L (98-107) 01/10/25 20:35 Carbon Dioxide 23 mmol/L (22-29) 01/10/25 20:35 Anion Gap 17.0 (5-19) 01/10/25 20:35 BUN 15 mg/dL (8-23) 01/10/25 20:35 Creatinine 1.0 mg/dL (0.7-1.2) 01/10/25 20:35 GFR Calculation 73.9 mL/min (90-130) L 01/10/25 20:35 Glucose 70 mg/dL (65-115) 01/10/25 20:35 Calculated Osmolality 295 mOsm/kg (285-295) 01/10/25 20:35 Calcium 9.0 mg/dL (8.5-10.5) 01/10/25 20:35 Total Bilirubin 0.3 mg/dL (0.15-1.2) 01/10/25 20:35 AST 31 U/L (0-40) 01/10/25 20:35 ALT 40 U/L (0-41) 01/10/25 20:35 Alkaline Phosphatase 151 U/L (40-130) H 01/10/25 20:35 Troponin T Baseline < 6 ng/L (0-15) 01/10/25 20:35 Total Protein 6.3 g/dL (6.6-8.7) L 01/10/25 20:35 Albumin 4.2 g/dL (3.5-5.2) 01/10/25 20:35 Globulin 2.1 g/dL (1.3-4.6) 01/10/25 20:35 Influenza A (PCR) Negative (Negative) 01/10/25 20:00 Influenza Type B (PCR) Negative (Negative) 01/10/25 20:00 RSV (PCR) Negative (Negative) 01/10/25 20:00 SARS-CoV-2 (PCR) Negative (Negative) 01/10/25 20:00 All radiology interpretation(s) finalized by discharge Discharge Plan Discharge Patient Disposition: Home Clinical Impression: Acute bronchitis Qualifiers: Bronchitis organism: unspecified organism Qualified Code(s): J20.9 - Acute bronchitis, unspecified RAD (reactive airway disease) Qualifiers: Asthma severity: mild Asthma persistence: intermittent Asthma complication type: with acute exacerbation Qualified Code(s): J45.21 - Mild intermittent asthma with (acute) exacerbation Condition: Stable Prescriptions: New prednisone 20 mg tablet 60 mg PO ONCE 5 Days Qty: 15 0RF albuterol sulfate 90 mcg/actuation HFA aerosol inhaler 1 inh inhalation Q6H PRN (Reason: shortness of breath or wheezing) Qty: 6.7 0RF azithromycin 500 mg tablet 500 mg PO DAILY 5 Days Qty: 5 0RF No Action Aleve tablet 220 mg PO BID PRN (Reason: Pain) hydrocodone-acetaminophen 5-325 mg tablet 1 tab PO Q6H PRN (Reason: pain) Qty: 30 0RF Discharge Orders: Discharge ED (Routine); Ordered 01/10/25 Ordered By: Rober Martinez Referrals: Curtis Cobb MD [Primary Care Provider, [facility]] Patient Instructions: Patient Portal & Lauren Instructions Activity Restrictions/Additional Instructions: Acute Bronchitis Discharge Diagnosis: Acute bronchitis with reactive airway disease. Summary: The evaluation in the emergency department, including chest X-ray, cardiac workup, and D-dimer, was normal. Symptoms improved after a breathing treatment, supporting a diagnosis of acute bronchitis with reactive airway features. Medications: - Azithromycin: Take as prescribed. Although most cases of acute bronchitis are viral and do not require antibiotics, azithromycin has been prescribed due to clinical judgment. Monitor for side effects such as gastrointestinal upset or rash. Discontinue and seek care if severe allergic reaction occurs. - Prednisone: Take as directed. Corticosteroids are not routinely recommended for uncomplicated acute bronchitis, but may be considered in cases with significant bronchospasm or underlying reactive airway disease. Monitor for side effects such as mood changes, insomnia, or elevated blood glucose. - Albuterol inhaler: Use as prescribed for relief of cough and shortness of breath. Albuterol is most effective in patients with wheezing or evidence of bronchial hyperresponsiveness. Common side effects include tremor, palpitations, or nervousness. Symptom Course and Expectations: - Cough from acute bronchitis typically lasts 2?3 weeks, even after other symptoms improve. - Most cases are self-limited and resolve without complications. - Symptomatic management (hydration, rest, and use of prescribed medications) is the mainstay of treatment. Return Precautions: Seek prompt medical attention if any of the following occur: - Worsening shortness of breath, chest pain, or difficulty breathing - Coughing up blood - High fever (>38.5?C/101.3?F) or persistent fever - Confusion, severe weakness, or fainting - Symptoms not improving or worsening after 7 days - New or severe side effects from medications Follow-Up: - If cough persists beyond 3 weeks, or if symptoms worsen, follow up with a primary care provider for reassessment and consideration of further evaluation (such as repeat chest X-ray or pulmonary function testing). - If you have a history of asthma, COPD, or other chronic lung disease, follow up as directed for disease-specific management. Additional Instructions: - Complete the full course of prescribed medications unless instructed otherwise. - Avoid smoking and exposure to respiratory irritants. - Use [id number] cough suppressants or expectorants only if recommended, as evidence for benefit is limited. - Maintain good hydration and rest. 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
[2025-01-10 20:49] LABS: Hematocrit 44.1 % (37-53); Hemoglobin 14.70 g/dL (11.27-16.99); Mean Corpuscular HGB Conc 33.3 g/dL (30-55); Mean Corpuscular Hemoglobin 31.6 pg (27-33); Mean Corpuscular Volume 94.8 fl (82-101); Nucleated Red Blood Cells % 0 %; Platelet Count 270 10^3/cmm (157-399); Red Blood Count 4.65 10^6/uL (3.85-5.65); White Blood Count 6.72 10^3/uL (3.29-11.43)
[2025-01-10 21:06] LABS: Troponin(5th) Baseline < 6 ng/L (0-15)
[2025-01-10 21:10] LABS: Alanine Aminotransferase 40 U/L (0-41); Albumin Level 4.2 g/dL (3.5-5.2); Alkaline Phosphatase 151 U/L (40-130); Aspartate Amino Transferase 31 U/L (0-40); Blood Urea Nitrogen 15 mg/dL (8-23); Calcium 9.0 mg/dL (8.5-10.5); Carbon Dioxide 23 mmol/L (22-29); Chloride 107 mmol/L (98-107); Creatinine Clr Calc Pharmacy 78.9223; Globulin 2.1 g/dL (1.3-4.6); Glucose 70 mg/dL (65-115); Osmolality Calculated 295 mOsm/kg (285-295); Sodium 143 mmol/L (136-145); Total Protein 6.3 g/dL (6.6-8.7)
[2025-01-10 21:10] LABS: Respiratory Syncytial Virus Ce NEGATIVE (Negative); SARS-CoV-2 PCR NEGATIVE (Negative)
[2025-01-10 21:11] LABS: Anion Gap 17.0 (5-19); Potassium 4.0 mmol/L (3.5-5.1)
[2025-01-10 21:12] VITALS: PULSE 80; RESP 18; O2SAT 96
[2025-01-10 21:17] VITALS: PULSE 82
[2025-01-10 21:38] VITALS: BP 117/74; O2SAT 93
[2025-01-10 22:10] VITALS: BP 141/86; PULSE 83; RESP 16; O2SAT 91
== END 2025-01-10 22:11 | disposition home or self-care (01) ==
PROVIDERS: Emergency Provider Physician Assistant; PCP Family Medicine
DX: J20.9 Acute bronchitis, unspecified (principal); J45.21 Mild intermittent asthma with (acute) exacerbation; Z11.52 Encounter for screening for COVID-19
CPT/HCPCS: 36415; 71045; 80053; 84484; 85025; 85378; 87637; 93005; 94640; 99285; J9999; Q0144